=== PATIENT | female | born 1950 | race Caucasian/White ===

== ENCOUNTER 2017-03-11 07:02 | Outpatient (CLI) | payer MEDICARE, OTHER | END 2017-03-11 07:03 | disposition home or self-care (01) | LOC: BICMRI 07:02 | PROVIDERS: ATTEND Physical Medicine & Rehabilitation | DX: M54.6 Pain in thoracic spine (principal); M47.814 Spondylosis without myelopathy or radiculopathy, thoracic region; G95.0 Syringomyelia and syringobulbia; N28.1 Cyst of kidney, acquired | CPT/HCPCS: 72146 ==

== ENCOUNTER 2017-03-23 17:08 | Emergency (ER) | payer MEDICARE, OTHER ==
--- NOTE | 2017-03-23 18:01 | CT ---
CT OF BRAIN PERFORMED WITHOUT CONTRAST ENHANCEMENT: 03/23/17 HISTORY: Hypertension and headache. COMPARISON: 05/27/16 study. Some mild ventricular and sulcal prominence. There is no signs of intracerebral hemorrhage or extra-a xial fluid collections. The mastoid air cells and visualized sinuses are clear. IMPRESSION: No acute intracranial abnormalities. POS: [facility]
[2017-03-23] MEDS ORDERED: Metoclopramide HCl 10 MG/2 ML VIAL ONE (18:24)
[2017-03-23] MEDS ORDERED: diphenhydrAMINE 50 MG/ML VIAL ONE (18:24)
[2017-03-23 18:48] LABS: #Basophils 0.1 thou/uL (0.0-0.2); #Lymphocytes 1.5 thou/uL (1.20-3.40); #Monocytes 1.1 thou/uL (0.11-0.59); #Neutrophils 14.1 thou/uL (1.40-6.50); %Basophils 0.6 % (0.0-1.0); %Lymphocytes 8.9 % (21.0-51.0); %Monocytes 6.6 % (0.0-10.0); Hematocrit 41.9 % (36.0-47.0); Mean Platelet Volume 6.9 fL (7.4-10.4); Red Blood Cell (RBC) Count 4.73 mill/uL (4.20-5.40); White Blood Cell (WBC) Count 16.8 thou/uL (4.8-10.8)
[2017-03-23] MEDS ORDERED: Labetalol HCl 100 MG/20 ML VIAL ONE (18:48)
[2017-03-23 18:54] LABS: Prothrombin Time 13.2 SEC (12.0-14.7)
[2017-03-23 19:04] LABS: ALT (SGPT) 20 U/L (8-55); AST (SGOT) 19 U/L (5-34); Alkaline Phosphatase 86 U/L (40-150); Anion Gap 17 mmol/L (10-20); BUN (Urea Nitrogen) 12 mg/dL (9.8-20.1); Bilirubin, Total 0.4 mg/dL (0.2-1.2); Calc. Creatinine Clearance 0 mL/min (70-130); Calcium 10.1 mg/dL (7.8-10.44); Carbon Dioxide 25 mmol/L (23-31); Chloride 107 mmol/L (98-107); Estimated GFR-MDRD 70; Globulin 3.5 g/dL (2.4-3.5); Magnesium 2.5 mg/dL (1.6-2.6); Protein, Total 8.2 g/dL (6.0-8.3)
[2017-03-23 19:05] LABS: Troponin I Less than 0.010 ng/mL (< 0.028)
[2017-03-23] MEDS ORDERED: Ketorolac Tromethamine 30 MG/ML VIAL ONE (19:58)
[2017-03-23] MEDS ORDERED: Fentanyl 100 MCG/2 ML VIAL ONE (20:31)
== END 2017-03-23 21:13 | disposition home or self-care (01) ==
LOC: SCSER 17:08
DX: I10 Essential (primary) hypertension (principal); J06.9 Acute upper respiratory infection, unspecified; K21.9 Gastro-esophageal reflux disease without esophagitis
CPT/HCPCS: 70450; 80053; 82553; 83735; 84484; 85025; 85610; 93005; 96365; 96375; J1200; J1885; J2765; J3010

== ENCOUNTER 2017-04-01 16:01 | Outpatient (CLI) | payer MEDICARE, OTHER ==
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
== END 2017-04-01 16:02 | disposition home or self-care (01) ==
LOC: SCSMRI 16:01
PROVIDERS: ATTEND Family Medicine
DX: R51 Headache (principal); I67.82 Cerebral ischemia
CPT/HCPCS: 70551

== ENCOUNTER 2017-05-06 13:25 | Outpatient (CLI) | payer MEDICARE, OTHER | END 2017-05-06 13:26 | disposition home or self-care (01) | LOC: BICRAD 13:25 | PROVIDERS: ATTEND Family Medicine | DX: L03.317 Cellulitis of buttock (principal); M16.12 Unilateral primary osteoarthritis, left hip; Z98.1 Arthrodesis status | CPT/HCPCS: 72202 ==

== ENCOUNTER 2018-01-06 09:00 | Outpatient (CLI) | payer MEDICARE, OTHER ==
[~2018-01-06 09:00] MED LIST: Iopamidol 370 76% 100 ML VIAL ONE
--- NOTE | 2018-01-06 18:09 | CT ---
CT OF CHEST PERFORMED WITH CONTRAST CT OF ABDOMEN AND PELVIS PERFORMED WITH CONTRAST 01/06/18 HISTORY: Patient has lower abdominal pain and a ripping feeling in her chest with history of multiple previous surgeries including cholecystectomy and appendectomy and some type of stomach surgery. COMPARISON: 05/27/16 exam. The lungs are clear of any infiltrative process. No pleural effusions or pulmonary nodules identified . There are no rib fractures seen. The thyroid gland is enlarged. There are multiple bilateral thyroid nodules. The thoracic aorta is no rmal in caliber. There is no mediastinal, hilar or axillary adenopathy. CT OF ABDOMEN PERFORMED WITH CONTRAST ENHANCEMENT: Small hiatal hernia is noted. There is slight elevation to the right hemidiaphragm. The liver, spleen and pancreas regions appear unremarkable. The gallbladder appears to have been removed. Right and left adrenal glands are normal in appearance. A right renal cyst appears stable as compared to the prior exam. No obstruction. No significant periaortic or mesenteric adenopathy. No signs for obstruction. CT OF PELVIS PERFORMED WITH CONTRAST ENHANCEMENT: Bilateral I-bar placement across the SI joints are noted. No adenopathy, mass or free fluid. IMPRESSION: No acute abnormalities to the chest, abdomen or pelvis. Incidental findings as noted above. POS: [facility]
== END 2018-01-06 09:01 | disposition home or self-care (01) ==
LOC: SCSCT 09:00
PROVIDERS: ATTEND Family Medicine
DX: R10.32 Left lower quadrant pain (principal)
CPT/HCPCS: 71260; 74177

== ENCOUNTER 2018-04-07 11:39 | Emergency (ER) | payer MEDICARE, OTHER ==
[~2018-04-07 11:39] MED LIST changes: +ISOVUE-370 76%-LOCM 1 ML ONE; -Iopamidol 370 76% 100 ML VIAL ONE
[2018-04-07] MEDS ORDERED: Ondansetron PF 4 MG/2 ML Vial ONE (12:12)
[2018-04-07] MEDS ORDERED: Ketorolac Tromethamine 30 MG/ML VIAL ONE (12:12)
[2018-04-07 12:21] LABS: #Basophils 0.1 thou/uL (0.0-0.2); #Eosinphils 0.2 thou/uL (0.0-0.7); #Lymphocytes 1.7 thou/uL (1.20-3.40); #Monocytes 0.5 thou/uL (0.11-0.59); #Neutrophils 4.6 thou/uL (1.40-6.50); %Basophils 1.1 % (0.0-1.0); %Eosinophils 2.2 % (0.0-10.0); %Lymphocytes 24.7 % (21.0-51.0); %Monocytes 6.5 % (0.0-10.0); %Neutrophils 65.5 % (42.0-75.0); Hemoglobin 13.8 g/dL (12.0-16.0); Mean Corpuscular HGB CONC 34.2 g/dL (32.0-36.0); Mean Corpuscular Hemoglobin 30.3 pg (27.0-31.0); Mean Corpuscular Volume 88.6 fL (78.0-98.0); Mean Platelet Volume 6.9 fL (7.4-10.4); Platelet Count 274 thou/uL (130-400); RBC Distribution Width 12.3 % (11.5-14.5); Red Blood Cell (RBC) Count 4.56 mill/uL (4.20-5.40)
[2018-04-07 12:39] LABS: Bilirubin Negative (Negative); Blood, Urine Negative (Negative); Clarity CLEAR (Clear); Glucose, Urine (Dipstick) Negative (Negative); Leukocyte Small (Negative); Nitrite Negative (Negative); Protein, Urine (Dipstick) Negative (Neg-Trace); Urobilinogen 0.2 mg/dL (0.2-1.0); pH, Urine 6.5 (5.0-9.0)
[2018-04-07 12:41] LABS: Bacteria/HPF None Seen HPF (None Seen); Hyaline Casts/LPF 0-3 HYALINE CAST LPF (0-3 Hyaline); RBC/HPF 0-3 HPF (0-3); Squamous Epithelial 0-3 HPF (0-3); WBC/HPF 0-3 HPF (0-3)
[2018-04-07 12:45] LABS: ALT (SGPT) 12 U/L (8-55); AST (SGOT) 15 U/L (5-34); Albumin 4.1 g/dL (3.4-4.8); Alkaline Phosphatase 79 U/L (40-150); Anion Gap 14 mmol/L (10-20); BUN (Urea Nitrogen) 8 mg/dL (9.8-20.1); Bilirubin, Total 0.6 mg/dL (0.2-1.2); Calc. Creatinine Clearance 0 mL/min (70-130); Calcium 9.6 mg/dL (7.8-10.44); Carbon Dioxide 24 mmol/L (23-31); Chloride 105 mmol/L (98-107); Estimated GFR-MDRD 60; Globulin 3.1 g/dL (2.4-3.5); Glucose 102 mg/dL (80-115); Lipase 28 U/L (8-78); Protein, Total 7.2 g/dL (6.0-8.3); Sodium 139 mmol/L (136-145)
--- NOTE | 2018-04-07 14:32 | CT ---
CT OF THE ABDOMEN AND PELVIS WITH IV CONTRAST: Date: 04-07-18 Provided Clinical History: Left lower quadrant/flank pain. Comparison: 04-07-18 FINDINGS: The visualized lung bases are free of significant opacity. There is a stable simple cyst involving the right kidney. The solid abdominal organs demonstrate an o therwise unremarkable CT appearance. There is no bowel dilatation, inflammatory fat stranding, free fluid or lymph node enlargement appare nt. No evidence for urinary tract calculi or hydronephrosis. Scattered vascular calcifications are seen. Bilateral sacroiliac joint arthrodesis changes are noted. The osseous structures demonstrate no concerning lytic or blastic lesions. IMPRESSION: No evidence for acute process. POS: [facility]
== END 2018-04-07 14:38 | disposition home or self-care (01) ==
LOC: ERS 11:39
DX: R10.32 Left lower quadrant pain (principal); E78.5 Hyperlipidemia, unspecified; K21.9 Gastro-esophageal reflux disease without esophagitis; I10 Essential (primary) hypertension; Z79.899 Other long term (current) drug therapy
CPT/HCPCS: 36415; 74177; 80053; 81003; 81015; 83690; 85025; 96361; 96374; 96375; J1885; J2405

== ENCOUNTER 2018-07-09 08:59 | Emergency (ER) | payer MEDICARE, OTHER ==
[2018-07-09] MEDS ORDERED: Ketorolac Tromethamine 60 MG/2 ML VIAL ONE (09:29)
[2018-07-09] MEDS ORDERED: Ondansetron ODT 8 MG TAB ONE (09:29)
[2018-07-09 09:43] LABS: Bilirubin Small (Negative); Blood, Urine Trace (Negative); Clarity Cloudy (Clear); Glucose, Urine (Dipstick) Negative (Negative); Leukocyte Moderate (Negative); Nitrite Negative (Negative); Protein, Urine (Dipstick) 30 mg/dL (Neg-Trace); Urobilinogen 0.2 mg/dL (0.2-1.0)
[2018-07-09 09:44] LABS: Bacteria/HPF 3+ HPF (None Seen); Squamous Epithelial 0-3 HPF (0-3); WBC/HPF 21-50 HPF (0-3)
[2018-07-09 10:05] LABS: #Basophils 0.1 thou/uL (0.0-0.2); #Eosinphils 0.1 thou/uL (0.0-0.7); #Lymphocytes 1.2 thou/uL (1.20-3.40); #Monocytes 0.4 thou/uL (0.11-0.59); #Neutrophils 4.2 thou/uL (1.40-6.50); %Basophils 1.6 % (0.0-1.0); %Eosinophils 1.1 % (0.0-10.0); %Lymphocytes 20.6 % (21.0-51.0); %Monocytes 6.6 % (0.0-10.0); %Neutrophils 70.1 % (42.0-75.0); Hemoglobin 13.5 g/dL (12.0-16.0); Mean Corpuscular Hemoglobin 29.5 pg (27.0-31.0); Mean Corpuscular Volume 89.5 fL (78.0-98.0); Mean Platelet Volume 6.3 fL (7.4-10.4); Platelet Count 237 thou/uL (130-400); RBC Distribution Width 12.1 % (11.5-14.5); Red Blood Cell (RBC) Count 4.58 mill/uL (4.20-5.40)
[2018-07-09 10:16] LABS: ALT (SGPT) 14 U/L (8-55); AST (SGOT) 14 U/L (5-34); Albumin 4.1 g/dL (3.4-4.8); Alkaline Phosphatase 71 U/L (40-150); Anion Gap 14 mmol/L (10-20); BUN (Urea Nitrogen) 8 mg/dL (9.8-20.1); Bilirubin, Total 0.6 mg/dL (0.2-1.2); Calc. Creatinine Clearance 0 mL/min (70-130); Calcium 9.4 mg/dL (7.8-10.44); Carbon Dioxide 24 mmol/L (23-31); Chloride 109 mmol/L (98-107); Estimated GFR-MDRD 71; Globulin 2.7 g/dL (2.4-3.5); Glucose 113 mg/dL (80-115); Potassium 3.6 mmol/L (3.5-5.1); Protein, Total 6.8 g/dL (6.0-8.3); Sodium 143 mmol/L (136-145)
== END 2018-07-09 10:20 | disposition home or self-care (01) ==
LOC: SCSER 08:59
DX: N39.0 Urinary tract infection, site not specified (principal); E78.5 Hyperlipidemia, unspecified; K21.9 Gastro-esophageal reflux disease without esophagitis; I10 Essential (primary) hypertension; Z79.899 Other long term (current) drug therapy
CPT/HCPCS: 36415; 80053; 81003; 81015; 85025; 87077; 87086; 87186; 96372; J1885

== ENCOUNTER 2018-07-17 13:18 | Emergency (ER) | payer MEDICARE ==
--- NOTE | 2018-07-17 14:23 | RAD ---
CHEST 1 VIEW: Date: 07/17/18 Time: 1411 hours HISTORY: Abdominal pain. UTI. FINDINGS: Comparison made with exam of 03/13/14. The heart size is normal. The lungs are expanded without focal areas of consolidation, pneumothoraces , or pleural effusions. IMPRESSION: No radiographic evidence of acute cardiopulmonary process. POS: [facility]
[2018-07-17 14:46] LABS: #Basophils 0.1 thou/uL (0.0-0.2); #Eosinphils 0.1 thou/uL (0.0-0.7); #Lymphocytes 1.7 thou/uL (1.20-3.40); #Monocytes 0.5 thou/uL (0.11-0.59); %Basophils 0.8 % (0.0-1.0); %Eosinophils 0.9 % (0.0-10.0); %Lymphocytes 23.3 % (21.0-51.0); %Monocytes 6.8 % (0.0-10.0); %Neutrophils 68.2 % (42.0-75.0); Hemoglobin 13.9 g/dL (12.0-16.0); Mean Corpuscular HGB CONC 33.5 g/dL (32.0-36.0); Mean Corpuscular Hemoglobin 30.3 pg (27.0-31.0); Mean Corpuscular Volume 90.4 fL (78.0-98.0); Platelet Count 296 thou/uL (130-400); RBC Distribution Width 11.9 % (11.5-14.5); Red Blood Cell (RBC) Count 4.59 mill/uL (4.20-5.40); White Blood Cell (WBC) Count 7.3 thou/uL (4.8-10.8)
[2018-07-17] MEDS ORDERED: ISOVUE-370 76%-LOCM 1 ML ONE (15:03)
[2018-07-17 15:05] LABS: ALT (SGPT) 28 U/L (8-55); AST (SGOT) 31 U/L (5-34); Albumin 4.1 g/dL (3.4-4.8); Alkaline Phosphatase 69 U/L (40-150); Anion Gap 15 mmol/L (10-20); BUN (Urea Nitrogen) 11 mg/dL (9.8-20.1); Bilirubin, Total 0.6 mg/dL (0.2-1.2); CK (CPK) 25 U/L (29-168); Calc. Creatinine Clearance 0 mL/min (70-130); Calcium 9.5 mg/dL (7.8-10.44); Carbon Dioxide 22 mmol/L (23-31); Chloride 106 mmol/L (98-107); Estimated GFR-MDRD 57; Globulin 2.5 g/dL (2.4-3.5); Glucose 116 mg/dL (80-115); Lipase 38 U/L (8-78); Potassium 3.7 mmol/L (3.5-5.1); Protein, Total 6.6 g/dL (6.0-8.3); Sodium 139 mmol/L (136-145)
[2018-07-17 15:37] LABS: Bilirubin Small (Negative); Blood, Urine Negative (Negative); Clarity CLOUDY (Clear); Glucose, Urine (Dipstick) Negative (Negative); Leukocyte Large (Negative); Nitrite Positive (Negative); Protein, Urine (Dipstick) 100 mg/dL (Neg-Trace); Specific Gravity, Urine 1.024 (1.002-1.036); Urobilinogen 0.2 mg/dL (0.2-1.0)
[2018-07-17] MEDS ORDERED: Ondansetron ODT 4 MG TAB ONE (15:38)
[2018-07-17 15:50] LABS: Pathc Cast-AUWi Flag 8.97 (0-2.49); Yeast-AUWi Flag 37.1 (0-25.0)
[2018-07-17 16:00] LABS: Bacteria/HPF Rare-Few HPF (None Seen); Hyaline Casts/LPF 4-6 HYALINE CAST LPF (0-3 Hyaline); Renal Epithelial 0-3 HPF (0-3)
[2018-07-17 16:01] LABS: Yeast-All Forms None Seen HPF (None Seen)
--- NOTE | 2018-07-17 17:37 | CT ---
CT of abdomen and pelvis: 07/17/2018 COMPARISON: 04/07/2018 HISTORY: Intermittent abdominal pain TECHNIQUE: Axial CT imaging at 5 mm intervals through abdomen and pelvis with IV contrast. Coronal re formatted imaging obtained. FINDINGS: The lack of oral contrast limits assessment of the bowel. The imaged lung bases are unremar kable. No free intraperitoneal air or fluid seen. The gallbladder is nonvisualized. The liver, spleen, pancreas, and adrenal glands appear unremarkable . Neither kidney appears obstructed. Stable midpole right renal cyst measuring 2.6 cm. There is fusion hardware associated with bilateral sacroiliac joints. The uterus appears surgically absent. Limited assessment of the bowel appears grossly unremarkable. There is scattered arterial calcification of the abdominal aorta. No pelvic, retroperitoneal, or mesenteric lymphadenopathy. No acute osseous abnormality. Multilevel stable degenerative changes noted involving the imaged lower thoracic spine and the lumbar spine. IMPRESSION: Stable CT examination of the abdomen and pelvis. No acute findings.
== END 2018-07-17 18:18 | disposition home or self-care (01) ==
LOC: ERS 13:18
DX: N39.0 Urinary tract infection, site not specified (principal); E78.5 Hyperlipidemia, unspecified; K21.9 Gastro-esophageal reflux disease without esophagitis; I10 Essential (primary) hypertension
CPT/HCPCS: 36415; 71045; 74177; 80053; 81003; 81015; 82550; 83605; 83690; 84484; 85025; 87086; 93005; 94760; Q0162; Q9966

== ENCOUNTER 2019-05-23 10:07 | Outpatient (CLI) | payer MEDICARE, OTHER ==
--- NOTE | 2019-05-23 10:26 | RAD ---
TWO VIEWS OF THE CHEST: COMPARISON: 06/05/2014. HISTORY: Dyspnea. FINDINGS: Two views of the chest show normal sized cardiomediastinal silhouette. There is no evidence of consol idation, mass, or pleural effusion. Degenerative changes and postsurgical changes are seen in the spi ne. IMPRESSION: No evidence of acute cardiopulmonary disease. POS: [facility]
== END 2019-05-23 10:08 | disposition home or self-care (01) ==
LOC: RAD 10:07
PROVIDERS: ATTEND Internal Medicine
DX: R06.00 Dyspnea, unspecified (principal)
CPT/HCPCS: 71046

== ENCOUNTER 2020-01-31 17:16 | Inpatient (IN) | payer MEDICARE ==
[~2020-01-31 17:16] MED LIST changes: -ISOVUE-370 76%-LOCM 1 ML ONE; +Iopamidol-370 76% 500 ML 1 ML ONE
[2020-01-31] MEDS ORDERED: Acetaminophen 500 MG TAB ONE (17:30)
[2020-01-31 18:06] LABS: #Lymphocytes 1.5 thou/uL (1.20-3.40); #Monocytes 0.7 thou/uL (0.11-0.59); #Neutrophils 4.5 thou/uL (1.40-6.50); %Basophils 0.6 % (0.0-1.0); %Eosinophils 0.2 % (0.0-10.0); %Monocytes 10.3 % (0.0-10.0); %Neutrophils 66.9 % (42.0-75.0); Hemoglobin 13.3 g/dL (12.0-16.0); Mean Corpuscular HGB CONC 36.6 g/dL (32.0-36.0); Mean Corpuscular Hemoglobin 31.5 pg (27.0-31.0); Mean Platelet Volume 7.1 fL (7.4-10.4); Platelet Count 205 thou/uL (130-400); RBC Distribution Width 11.8 % (11.5-14.5); Red Blood Cell (RBC) Count 4.21 mill/uL (4.20-5.40); White Blood Cell (WBC) Count 6.7 thou/uL (4.8-10.8)
[2020-01-31 18:38] LABS: ALT (SGPT) 18 U/L (8-55); AST (SGOT) 24 U/L (5-34); Albumin 3.5 g/dL (3.4-4.8); Alkaline Phosphatase 66 U/L (40-110); Anion Gap 15 mmol/L (10-20); BUN (Urea Nitrogen) 14 mg/dL (9.8-20.1); Bilirubin, Total 0.5 mg/dL (0.2-1.2); Calc. Creatinine Clearance 0 mL/min (70-130); Calcium 8.7 mg/dL (7.8-10.44); Carbon Dioxide 23 mmol/L (23-31); Chloride 98 mmol/L (98-107); Estimated GFR-MDRD 71; Globulin 3.3 g/dL (2.4-3.5); Glucose 114 mg/dL (83-110); Magnesium 1.9 mg/dL (1.6-2.6); Potassium 3.1 mmol/L (3.5-5.1); Protein, Total 6.8 g/dL (6.0-8.3); Sodium 133 mmol/L (136-145)
[2020-01-31] MEDS ORDERED: Budesonide 0.5 MG/2 ML NEB ONE (18:42)
[2020-01-31] MEDS ORDERED: Dexamethasone 10 MG/ML VIAL ONE (18:42)
[2020-01-31] MEDS ORDERED: Albuterol 200 PUFF (6.7GM INHALER) ONE (18:44)
--- NOTE | 2020-01-31 18:52 | RAD ---
FRONTAL RADIOGRAPH CHEST: 01/31/20 Portable upright. COMPARISON: 05/23/19 HISTORY: Positive COVID test, chills and weakness. FINDINGS: Mild hazy opacity noted lateral to the left hilum which may signify vascular prominence, volume loss or mild infiltrates associated with COVID pneumonia. No pneumothorax, pleural fluid or lobar consolid ation. IMPRESSION: Mild hazy increased density lateral to the left hilum may signify infiltrate associated with COVID pn eumonia. CT examination could better evaluate the lung parenchyma. POS: [facility]
[2020-01-31 19:17] LABS: Bilirubin Negative (Negative); Blood, Urine Trace (Negative); Glucose, Urine (Dipstick) Negative (Negative); Ketone, Urine Trace mg/dL (Negative); Leukocyte Large (Negative); Nitrite Negative (Negative); Protein, Urine (Dipstick) Trace mg/dL (Neg-Trace); Specific Gravity, Urine 1.015 (1.005-1.030)
[2020-01-31 19:18] LABS: Clarity Hazy (Clear)
[2020-01-31 19:25] LABS: Bacteria/HPF 4+ HPF (None Seen); Squamous Epithelial 0-3 HPF (0-3); WBC/HPF Greater Than 50 HPF (0-3)
[2020-01-31] MEDS ORDERED: cefTRIAXone\\ROCEPHIN 1 GM VIAL ONE (19:31)
--- NOTE | 2020-01-31 19:37 | CT ---
CT ANGIOGRAM THORAX WITH IV CONTRAST AND 3-D RECONSTRUCTIONS CLINICAL INDICATION: 1 week history of worsening weakness and general malaise. Covid positive. Hypoxia. Exertional dyspnea . COMPARISON: 02/25/2019 FINDINGS: Pulmonary arteries: No filling defects are seen in the pulmonary arteries to suggest a pulmonary embo mary. Aorta: Scattered vascular calcifications in minimal atherosclerotic plaque. Lungs: There are scattered mild groundglass densities seen throughout the lungs bilaterally in a paco pheral predominance suggesting viral pneumonitis such as Covid 19. A trace right pleural effusion is visualized. No discrete pulmonary nodule or mass is identified. Large airways appear patent withou t filling defect visualized. Mediastinum: No enlarged lymph nodes are seen by CT size criteria. Mild increase in small lymph nodes is present which may be related to mild reactive lymphadenopathy. Thyroid gland: The thyroid gland is enlarged and heterogeneous with suggestion of bilateral thyroid n odules. This finding was also present on CTA chest on 02/25/2019. Cystic lesions and heterogeneous nodules were seen on CT examination in 2018. Osseous structures: Postoperative changes with metallic intradiscal spacer lower cervical spine is no fidencio. Mild degenerative changes are seen in the thoracic spine. Chest wall: No abnormality visualized. Upper abdomen: Hypodense lesion right kidney seen on prior study in 2018 compatible with a cyst. Smal l hiatal hernia is present. Remainder the upper abdomen has a normal CT appearance. IMPRESSION: 1. Covid pneumonia with scattered groundglass densities throughout the lungs. 2. No CT evidence of a pulmonary embolus. 3. Enlarged thyroid gland with multiple thyroid nodules present which were seen on prior studies in 2 and 2018.
[2020-01-31] MEDS ORDERED: Azithromycin 500 MG VIAL ONE (20:21)
[2020-01-31 23:23] VITALS: BMI 33.3
[2020-02-01] MEDS ORDERED: Ondansetron PF 4 MG/2 ML Vial IVP PRN (00:12)
[2020-02-01] MEDS ORDERED: Potassium Chloride 20 MEQ TAB PO SCH (00:15)
[2020-02-01] MEDS ORDERED: Montelukast Sodium 10 mg Tablet PO SCH (00:30)
[2020-02-01] MEDS ORDERED: Atorvastatin Calcium 20 MG TAB PO SCH (00:30)
[2020-02-01] MEDS ORDERED: traZODone HCl 150 MG TAB PO SCH (00:30)
[2020-02-01] MEDS ORDERED: rOPINIRole HCl 1 MG TAB PO SCH (00:30)
[2020-02-01] MEDS: Baclofen 10 MG TAB PO SCH ×4 (00:37→17:30)
--- NOTE | 2020-02-01 01:37 | HP ---
REASON FOR ADMISSION: Fatigue and decreased oral intake. HISTORY OF PRESENT ILLNESS: This is a 69-year-old female patient who was recently diagnosed with COVID-19. She has been tired and in bed most of the time for the past week. She was exposed to the flu. She went to the clinic yesterday to test for the flu and was tested as well for COVID-19. She tested positive. She denies being short of breath. She complains mainly of severe fatigue and generalized muscle aches. She does have chronic abdominal pain and chronic back pain. PAST MEDICAL HISTORY: 1. High blood pressure. 2. Obesity. 3. High cholesterol. 4. Multiple back surgeries. 5. Abdominal surgeries. 6. Hysterectomy. 7. Cholecystectomy. 8. Appendectomy. 9. Chronic abdominal pain. SOCIAL HISTORY: She does not smoke. Does not drink alcohol. FAMILY HISTORY: Negative for premature coronary artery disease. REVIEW OF SYSTEMS: All systems reviewed and except the above mentioned, found to be negative. PHYSICAL EXAMINATION: GENERAL: Awake, alert, oriented, does not appear in distress. VITAL SIGNS: Her blood pressure is 124/62, her heart rate is 63, temperature is 97.7, saturating 96% on 2.5 L nasal cannula. HEENT: Head is nontraumatic, normocephalic. Pupils equal, reactive. Extraocular movements are intact. Nonicteric sclerae. Well-injected conjunctivae. Oral mucosa normal. Nasal mucosa normal. NECK: Supple. No adenopathy. No murmur. Thyroid is not palpable. Trachea is midline. No supraclavicular adenopathy. HEENT: S1, S2 regular. No murmurs. No gallops. No friction rubs. No displacement of PMI. LUNGS: No wheezes, no rhonchi, no crackles. ABDOMEN: Bowel sounds are positive. Nontender abdomen. No hepatosplenomegaly. EXTREMITIES: No lower extremity edema. No cyanosis. NEUROLOGIC: Cranial nerves 2 through 12 within normal limits. Normal motor function. Normal sensory function. Normal reflexes. LABORATORY DATA: Blood work shows WBC of 6.7, hemoglobin is 13.3, platelets of 205. D-dimer 0.76. Sodium 133, potassium 3.1, bicarb 23, creatinine 0.8. Urinalysis shows large leukocyte esterase, greater than [address] of the chest shows COVID pneumonia with scattered ground-glass densities throughout the lungs. No CT evidence of pulmonary embolus. Enlarged thyroid gland with multiple thyroid nodules present, which were seen on prior studies in 2019 and 2018. ASSESSMENT AND PLAN: This is a 69-year-old female patient, presenting with persistent fatigue. She was recently diagnosed with COVID-19. In the emergency room, she tried to ambulate, but was very fatigued, otherwise denies being short of breath. Cardiac: The patient will be maintained on her aspirin and Coreg. Renal system and electrolytes: The patient does have low potassium replaced. We will recheck in the morning. For COVID pneumonia, she did receive IV antibiotics in the ER. We will maintain her on the Decadron. She will be on Rocephin mainly for her urinary tract infection. For DVT prophylaxis, Lovenox subcutaneously. For her urinary tract infection, we will start her on Rocephin, awaiting urine culture results. Job ID: [id number]
[2020-02-01 07:16] LABS: Mean Corpuscular HGB CONC 34.4 g/dL (32.0-36.0); Mean Corpuscular Hemoglobin 30.5 pg (27.0-31.0); Mean Corpuscular Volume 88.7 fL (78.0-98.0); Mean Platelet Volume 6.8 fL (7.4-10.4); Platelet Count 210 thou/uL (130-400); RBC Distribution Width 11.8 % (11.5-14.5); Red Blood Cell (RBC) Count 4.26 mill/uL (4.20-5.40); White Blood Cell (WBC) Count 3.4 thou/uL (4.8-10.8)
[2020-02-01 07:23] LABS: Anion Gap 13 mmol/L (10-20); BUN (Urea Nitrogen) 18 mg/dL (9.8-20.1); Calc. Creatinine Clearance 89 mL/min (70-130); Calcium 8.9 mg/dL (7.8-10.44); Carbon Dioxide 26 mmol/L (23-31); Chloride 102 mmol/L (98-107); Estimated GFR-MDRD 61; Glucose 208 mg/dL (83-110); Potassium 3.8 mmol/L (3.5-5.1); Sodium 137 mmol/L (136-145)
[2020-02-01] MEDS: Aspirin 81 mg Enteric Coated Tablet PO SCH (08:30)
[2020-02-01] MEDS: Enoxaparin Sodium 40 MG/0.4 ML SYRINGE SC SCH (08:30)
[2020-02-01] MEDS: Hydrochlorothiazide 25 MG TAB PO SCH (08:30)
[2020-02-01] MEDS: Carvedilol 25 MG TAB PO SCH ×2 (08:35→17:30)
[2020-02-01] MEDS: Dexamethasone 4 mg/ml Vial SLOW IVP SCH (08:37)
[2020-02-01 08:51] LABS: #Lymphocytes 0.8 thou/uL (1.20-3.40); #Monocytes 0.3 thou/uL (0.11-0.59); #Neutrophils 2.3 thou/uL (1.40-6.50); %Eosinophils 0.4 % (0.0-10.0); %Lymphocytes 23.3 % (21.0-51.0); %Monocytes 8.1 % (0.0-10.0); %Neutrophils 68.2 % (42.0-75.0); Lymphocytes 28 % (21-51); MDiff Complete? YES; Monocytes 2 % (0-10); Neutrophil 70 % (42-75); Platelet Morphology Comment Appears Adequate; RBC Morphology Normal
[2020-02-01] MEDS: cefTRIAXone\\ROCEPHIN 1 GM in Sodium Chloride 0.9% 100 ML IVPB SCH (19:52)
[2020-02-01] MEDS: Montelukast Sodium 10 mg Tablet PO SCH (19:54)
[2020-02-01] MEDS: Atorvastatin Calcium 20 MG TAB PO SCH (19:54)
[2020-02-01] MEDS: rOPINIRole HCl 1 MG TAB PO SCH (19:55)
[2020-02-01] MEDS: traZODone HCl 150 MG TAB PO SCH (19:56)
[2020-02-01] MEDS ORDERED: Polyethylene Glycol 3350 17 GM Packet PO PRN (23:14)
[2020-02-02] MEDS: Baclofen 10 MG TAB PO SCH ×5 (00:06→23:11)
[2020-02-02] MEDS: Dexamethasone 4 mg/ml Vial SLOW IVP SCH (08:27)
[2020-02-02] MEDS: Hydrochlorothiazide 25 MG TAB PO SCH (08:27)
[2020-02-02] MEDS: Aspirin 81 mg Enteric Coated Tablet PO SCH (08:28)
[2020-02-02] MEDS: Polyethylene Glycol 3350 17 GM Packet PO SCH (08:28)
[2020-02-02] MEDS: Carvedilol 25 MG TAB PO SCH ×2 (08:28→17:25)
[2020-02-02] MEDS: Enoxaparin Sodium 40 MG/0.4 ML SYRINGE SC SCH ×2 (08:28→20:42)
[2020-02-02] MEDS: Multivit, Therapeutic 1 TAB PO SCH (11:05)
[2020-02-02] MEDS: Ascorbic Acid 500 mg Chewable Tablet PO SCH (11:05)
[2020-02-02] MEDS ORDERED: Melatonin 3 MG TAB PO PRN (12:37)
[2020-02-02] MEDS: PROVENTIL INHALER 6.7 G (200 INHALATIONS) INH SCH ×3 (16:26→23:11)
--- NOTE | 2020-02-02 18:50 | PDOC.HOSPP ---
- Subjective Encounter Date: 02/02/20 Encounter Time: 11:00 Subjective: Feels generally weak and fatigue. Short of breath on [id number] exertion. Some dry cough. - Objective Vital Signs & Weight: Vital Signs (12 hours) Temp Pulse Resp BP Pulse Ox 02/02/20 17:39 58 L 18 96 02/02/20 16:00 98.7 F 51 L 18 154/77 H 96 02/02/20 12:00 97.4 F L 54 L 18 121/92 H 94 L 02/02/20 08:30 97.8 F 56 L 18 134/87 94 L 02/02/20 08:00 94 L Weight Weight 218 lb 14.704 oz I&O: 02/01/20 02/02/20 02/03/20 06:59 06:59 06:59 Intake Total 1800 1680 Balance 1800 1680 Result Diagrams: 02/03/20 05:14 02/03/20 05:14 Additional Labs: Abnormal Lab Results - Last 48 hrs 02/01/20 06:54: Lymphocytes # 0.8 L Radiology Reviewed by me: Yes (Chest x-raypneumonia) Hospitalist ROS - Review of Systems Gastrointestinal: denies: nausea, vomiting, abdominal pain, diarrhea, constipation, melena, hematochezia, other Genitourinary: denies: dysuria, frequency, incontinence, hematuria, retention, other - Medication Medications: Active Medications Generic Name Dose Route Start Last Admin Trade Name Freq PRN Reason Stop Dose Admin Albuterol Sulfate 2 puff 02/02/20 14:30 02/02/20 17:39 Proventil Inhaler 6.7 G (200 Inhalations) INH 2 puff [id number] MARTÍN Administration Ascorbic Acid 1,000 mg 02/02/20 09:00 02/02/20 11:05 Ascorbic Acid 500 Mg Chewable Tablet PO 1,000 mg DAILY MARTÍN Administration Aspirin 81 mg 02/01/20 09:00 02/02/20 08:28 Aspirin 81 Mg Enteric Coated Tablet PO 81 mg DAILY MARTÍN Administration Atorvastatin Calcium 20 mg 02/01/20 21:00 02/01/20 19:54 Atorvastatin Calcium 20 Mg Tab PO 20 mg HS MARTÍN Administration Baclofen 5 mg 01/31/20 23:59 02/02/20 17:25 Baclofen 10 Mg Tab PO 5 mg Q6HR MARTÍN Administration Carvedilol 12.5 mg 02/01/20 08:00 02/02/20 17:25 Carvedilol 25 Mg Tab PO 12.5 mg BID-WM MARTÍN Administration Dexamethasone 6 mg 02/01/20 09:00 02/02/20 08:27 Dexamethasone 4 Mg/Ml Vial SLOW IVP 6 mg DAILY MARTÍN Administration Hydrochlorothiazide 12.5 mg 02/01/20 09:00 02/02/20 08:27 Hydrochlorothiazide 25 Mg Tab PO 12.5 mg DAILY MARTÍN Administration Ceftriaxone Sodium 1 gm/ 100 mls @ 200 mls/hr 02/01/20 20:00 02/01/20 19:52 Sodium Chloride IVPB 100 mls 2000 MARTÍN Administration Montelukast Sodium 10 mg 02/01/20 21:00 02/01/20 19:54 Montelukast Sodium 10 Mg Tablet PO 10 mg HS MARTÍN Administration Multivitamins 1 tab 02/02/20 09:00 02/02/20 11:05 Multivit, Therapeutic 1 Tab PO 1 tab DAILY MARTÍN Administration Ondansetron HCl 4 mg 02/01/20 00:12 02/01/20 00:37 Ondansetron Pf 4 Mg/2 Ml Vial IVP 4 mg Q6H PRN Administration Nausea/Vomiting Pantoprazole Sodium 40 mg 02/01/20 09:00 02/02/20 08:28 Pantoprazole 40 Mg Tab PO 40 mg BID MARTÍN Administration Polyethylene Glycol 17 gm 02/02/20 09:00 02/02/20 08:28 Polyethylene Glycol 3350 17 Gm Packet PO 17 gm DAILY MARTÍN Administration Ropinirole HCl 1 mg 02/01/20 21:00 02/01/20 19:55 Ropinirole Hcl 1 Mg Tab PO 1 mg QPM MARTÍN Administration Sodium Chloride 10 ml 02/02/20 09:00 02/02/20 11:06 Flush - Normal Saline 10 Ml Syringe IVF 10 ml Q12HR MARTÍN Administration Trazodone HCl 150 mg 02/01/20 21:00 02/01/20 19:56 Trazodone Hcl 150 Mg Tab PO 150 mg HS MARTÍN Administration - Exam General Appearance: ill appearing Neck: supple, no JVD Heart: RRR, no gallops, no rubs, normal peripheral pulses Respiratory: normal chest expansion, rales, rhonchi, tachypneic Gastrointestinal: soft, non-tender, non-distended, normal bowel sounds Extremities: no cyanosis, no clubbing, no edema Extremities - other findings: No calf tenderness Neurological: no new deficit Psychiatric: normal affect, A&O x 3 Hosp A/P - Plan DVT proph w/lovenox, DVT proph w/SCDs Acute hypoxic respiratory failure due to COVID-19 pneumoniasymptom onset January 22 UTIPOA Hypertension CKD stage II Hyperlipidemia Chronic low back pain Restless leg syndrome Anxiety Obesity with a BMI 33.3 Plan: Continue dexamethasone. Case discussed with infectious disease Dr. Fisher. Patient does not meet the criteria for remdesivir. Will increase Lovenox to 40 mg twice daily. Continue PPIs. Add vitamin C and zinc. Continue ceftriaxone for UTI. Continue other medications as above. Check inflammatory markers in a.m.
[2020-02-02] MEDS: cefTRIAXone\\ROCEPHIN 1 GM in Sodium Chloride 0.9% 100 ML IVPB SCH (20:41)
[2020-02-02] MEDS: Atorvastatin Calcium 20 MG TAB PO SCH (20:42)
[2020-02-02] MEDS: Montelukast Sodium 10 mg Tablet PO SCH (20:42)
[2020-02-02] MEDS: rOPINIRole HCl 1 MG TAB PO SCH (20:42)
[2020-02-02] MEDS: Zinc Sulfate 220 MG CAP PO SCH (20:42)
[2020-02-02] MEDS: traZODone HCl 150 MG TAB PO SCH (20:42)
[2020-02-03] MEDS: PROVENTIL INHALER 6.7 G (200 INHALATIONS) INH SCH ×6 (03:34→22:00)
[2020-02-03 05:28] LABS: #Lymphocytes 1.5 thou/uL (1.20-3.40); #Monocytes 0.6 thou/uL (0.11-0.59); #Neutrophils 6.5 thou/uL (1.40-6.50); %Eosinophils 0.2 % (0.0-10.0); %Lymphocytes 17.5 % (21.0-51.0); %Monocytes 6.6 % (0.0-10.0); %Neutrophils 75.7 % (42.0-75.0); Hemoglobin 12.5 g/dL (12.0-16.0); Mean Corpuscular HGB CONC 34.8 g/dL (32.0-36.0); Mean Corpuscular Hemoglobin 30.8 pg (27.0-31.0); Mean Corpuscular Volume 88.5 fL (78.0-98.0); Mean Platelet Volume 7.8 fL (7.4-10.4); Platelet Count 224 thou/uL (130-400); RBC Distribution Width 11.7 % (11.5-14.5); Red Blood Cell (RBC) Count 4.05 mill/uL (4.20-5.40); White Blood Cell (WBC) Count 8.6 thou/uL (4.8-10.8)
[2020-02-03] MEDS: Baclofen 10 MG TAB PO SCH ×3 (05:29→17:49)
[2020-02-03 05:48] LABS: ALT (SGPT) 16 U/L (8-55); AST (SGOT) 20 U/L (5-34); Albumin 3.3 g/dL (3.4-4.8); Alkaline Phosphatase 71 U/L (40-110); Anion Gap 11 mmol/L (10-20); BUN (Urea Nitrogen) 16 mg/dL (9.8-20.1); Bilirubin, Total 0.2 mg/dL (0.2-1.2); Calc. Creatinine Clearance 114 mL/min (70-130); Calcium 8.7 mg/dL (7.8-10.44); Carbon Dioxide 29 mmol/L (23-31); Chloride 103 mmol/L (98-107); Estimated GFR-MDRD 81; Globulin 3.1 g/dL (2.4-3.5); Glucose 117 mg/dL (83-110); Magnesium 1.9 mg/dL (1.6-2.6); Potassium 3.3 mmol/L (3.5-5.1); Protein, Total 6.4 g/dL (6.0-8.3); Sodium 140 mmol/L (136-145)
[2020-02-03] MEDS ORDERED: Potassium Chloride 20 MEQ TAB PO SCH ×2 (08:15→17:00)
[2020-02-03] MEDS: Multivit, Therapeutic 1 TAB PO SCH (08:15)
[2020-02-03] MEDS: Ascorbic Acid 500 mg Chewable Tablet PO SCH (08:17)
[2020-02-03] MEDS: Calcium Carbonate 600 MG + Vit D TAB PO SCH (08:17)
[2020-02-03] MEDS: Carvedilol 25 MG TAB PO SCH ×2 (08:18→17:49)
[2020-02-03] MEDS: Hydrochlorothiazide 25 MG TAB PO SCH (08:19)
[2020-02-03] MEDS: Dexamethasone 4 mg/ml Vial SLOW IVP SCH (08:19)
[2020-02-03] MEDS: Aspirin 81 mg Enteric Coated Tablet PO SCH (08:19)
[2020-02-03] MEDS: Enoxaparin Sodium 40 MG/0.4 ML SYRINGE SC SCH ×2 (08:20→20:15)
[2020-02-03] MEDS: Polyethylene Glycol 3350 17 GM Packet PO SCH (08:21)
[2020-02-03] MEDS ORDERED: Magnesium 2 GM/50 ML 2 GM in Premix Bag 1 BAG IVPB SCH (08:30)
[2020-02-03] MEDS: Cholecalciferol (Vitamin D3) 400 UNITS TAB PO SCH (10:44)
[2020-02-03] MEDS ORDERED: Artificial Tear Sol 15 ML BOT EA EYE PRN (16:41)
--- NOTE | 2020-02-03 18:31 | PDOC.HOSPP ---
- Subjective Encounter Date: 02/03/20 Encounter Time: 16:00 Subjective: Patient seen and examined for respiratory failure/COVID-19 pneumonia. No new complaints. No overnight events. Feels generally weak and fatigue. Short of breath on [id number] exertion. Minimal cough with some production. - Objective Vital Signs & Weight: Vital Signs (12 hours) Temp Pulse Resp BP Pulse Ox 02/03/20 17:51 63 14 96 02/03/20 16:00 97.8 F 63 14 127/59 L 96 02/03/20 14:30 63 14 96 02/03/20 12:40 96 02/03/20 12:28 96 02/03/20 12:00 97.5 F L 63 16 124/68 96 02/03/20 10:51 63 96 02/03/20 10:02 96 02/03/20 08:00 97.5 F L 52 L 16 144/79 H 96 Weight Weight 218 lb 14.704 oz I&O: 02/02/20 02/03/20 02/04/20 06:59 06:59 06:59 Intake Total 1800 3290 1690 Balance 1800 3290 1690 Result Diagrams: 02/03/20 05:14 02/03/20 05:14 Additional Labs: Abnormal Lab Results - Last 48 hrs 02/03/20 05:14: Potassium 3.3 L, C-Reactive Protein 1.20 H, Albumin 3.3 L, Albumin/Globulin Ratio 1.1 L 02/03/20 05:14: Ferritin 394.00 H 02/03/20 05:14: RBC 4.05 L, Hct 35.8 L, Neutrophils % 75.7 H, Lymphocytes % 17.5 L, Monocytes # 0.6 H 02/03/20 05:14: D-Dimer 0.55 H Microbiology - Entire Visit 02/02/20 00:30 Urine clean catch Urine Culture - Preliminary NO GROWTH AT 12 HOURS Radiology Reviewed by me: Yes (Chest x-raypneumonia) Hospitalist ROS - Review of Systems Cardiovascular: denies: chest pain, palpitations, orthopnea, paroxysmal noc. dyspnea, edema, light headedness, other Gastrointestinal: denies: nausea, vomiting, abdominal pain, diarrhea, constipa tion, melena, hematochezia, other - Medication Medications: Active Medications Generic Name Dose Route Start Last Admin Trade Name Freq PRN Reason Stop Dose Admin Albuterol Sulfate 2 puff 02/02/20 14:30 02/03/20 17:51 Proventil Inhaler 6.7 G (200 Inhalations) INH 2 puff [id number] MARTÍN Administration Ascorbic Acid 1,000 mg 02/02/20 09:00 02/03/20 08:17 Ascorbic Acid 500 Mg Chewable Tablet PO 1,000 mg DAILY MARTÍN Administration Aspirin 81 mg 02/01/20 09:00 02/03/20 08:19 Aspirin 81 Mg Enteric Coated Tablet PO 81 mg DAILY MARTÍN Administration Atorvastatin Calcium 20 mg 02/01/20 21:00 02/02/20 20:42 Atorvastatin Calcium 20 Mg Tab PO 20 mg HS MARTÍN Administration Baclofen 5 mg 01/31/20 23:59 02/03/20 17:49 Baclofen 10 Mg Tab PO 5 mg Q6HR MARTÍN Administration Calcium/Vitamin D 1 tab 02/03/20 08:00 02/03/20 08:17 Calcium Carbonate 600 Mg + Vit D Tab PO 1 tab QAM-WM MARTÍN Administration Carvedilol 12.5 mg 02/01/20 08:00 02/03/20 17:49 Carvedilol 25 Mg Tab PO 12.5 mg BID-WM MARTÍN Administration Cholecalciferol 400 units 02/03/20 09:00 02/03/20 10:44 Cholecalciferol (Vitamin D3) 400 Units Tab PO 400 units DAILY MARTÍN Administration Dexamethasone 6 mg 02/01/20 09:00 02/03/20 08:19 Dexamethasone 4 Mg/Ml Vial SLOW IVP 6 mg DAILY MARTÍN Administration Enoxaparin Sodium 40 mg 02/02/20 21:00 02/03/20 08:20 Enoxaparin Sodium 40 Mg/0.4 Ml Syringe SC 40 mg 0900,2100 MARTÍN Administration Hydrochlorothiazide 12.5 mg 02/01/20 09:00 02/03/20 08:19 Hydrochlorothiazide 25 Mg Tab PO 12.5 mg DAILY MARTÍN Administration Ceftriaxone Sodium 1 gm/ 100 mls @ 200 mls/hr 02/01/20 20:00 02/02/20 20:41 Sodium Chloride IVPB 100 mls 2000 MARTÍN Administration Montelukast Sodium 10 mg 02/01/20 21:00 02/02/20 20:42 Montelukast Sodium 10 Mg Tablet PO 10 mg HS MARTÍN Administration Multivitamins 1 tab 02/02/20 09:00 02/03/20 08:15 Multivit, Therapeutic 1 Tab PO 1 tab DAILY MARTÍN Administration Ondansetron HCl 4 mg 02/01/20 00:12 02/01/20 00:37 Ondansetron Pf 4 Mg/2 Ml Vial IVP 4 mg Q6H PRN Administration Nausea/Vomiting Pantoprazole Sodium 40 mg 02/01/20 09:00 02/03/20 08:19 Pantoprazole 40 Mg Tab PO 40 mg BID MARTÍN Administration Polyethylene Glycol 17 gm 02/02/20 09:00 02/03/20 08:21 Polyethylene Glycol 3350 17 Gm Packet PO 17 gm DAILY MARTÍN Administration Ropinirole HCl 1 mg 02/01/20 21:00 02/02/20 20:42 Ropinirole Hcl 1 Mg Tab PO 1 mg QPM MARTÍN Administration Sodium Chloride 10 ml 02/02/20 09:00 02/03/20 08:22 Flush - Normal Saline 10 Ml Syringe IVF 10 ml Q12HR MARTÍN Administration Trazodone HCl 150 mg 02/01/20 21:00 02/02/20 20:42 Trazodone Hcl 150 Mg Tab PO 150 mg HS MARTÍN Administration Zinc Sulfate 220 mg 02/02/20 21:00 02/02/20 20:42 Zinc Sulfate 220 Mg Cap PO 220 mg HS MARTÍN Administration - Exam General Appearance: ill appearing Heart: RRR, no gallops Respiratory: no wheezes, rales, rhonchi Gastrointestinal: soft, no guarding, no rigidity Extremities: no cyanosis, no clubbing Neurological: no new deficit Psychiatric: normal affect, A&O x 3 Hosp A/P - Plan DVT proph w/SCDs Acute hypoxic respiratory failure due to COVID-19 pneumoniasymptom onset January 22 UTI Hypertension CKD stage II Hyperlipidemia Chronic low back pain Restless leg syndrome Anxiety Obesity with a BMI 33.3 Plan: Continue O2 supplementation. Replace potassium and magnesium. Continue IV ceftriaxone for UTI. Continue bronchodilators. Continue dexamethasone. GI and DVT prophylaxis. Continue carvedilol, Lipitor and other medications as above. Recheck inflammatory markers every other day. Urine cultures negativeplease note that cultures were not sent on admission. A.m. labs
[2020-02-03] MEDS: cefTRIAXone\\ROCEPHIN 1 GM in Sodium Chloride 0.9% 100 ML IVPB SCH (20:14)
[2020-02-03] MEDS: Montelukast Sodium 10 mg Tablet PO SCH (20:15)
[2020-02-03] MEDS: traZODone HCl 150 MG TAB PO SCH (20:15)
[2020-02-03] MEDS: Atorvastatin Calcium 20 MG TAB PO SCH (20:15)
[2020-02-03] MEDS: Zinc Sulfate 220 MG CAP PO SCH (20:15)
[2020-02-03] MEDS: rOPINIRole HCl 1 MG TAB PO SCH (20:15)
[2020-02-03] MEDS: HYDROcodone/Chlorphen Polis 5 ML UDCUP PO PRN (20:56)
[2020-02-04] MEDS: Baclofen 10 MG TAB PO SCH ×4 (00:03→17:15)
[2020-02-04] MEDS: ALPRAZolam 0.25 MG TAB PO PRN (01:26)
[2020-02-04] MEDS: PROVENTIL INHALER 6.7 G (200 INHALATIONS) INH SCH ×6 (01:50→22:59)
[2020-02-04 06:19] LABS: #Lymphocytes 1.5 thou/uL (1.20-3.40); #Monocytes 0.7 thou/uL (0.11-0.59); #Neutrophils 5.2 thou/uL (1.40-6.50); %Basophils 0.1 % (0.0-1.0); %Eosinophils 0.4 % (0.0-10.0); %Monocytes 9.7 % (0.0-10.0); %Neutrophils 69.9 % (42.0-75.0); Hemoglobin 13.2 g/dL (12.0-16.0); Mean Corpuscular HGB CONC 34.6 g/dL (32.0-36.0); Mean Corpuscular Hemoglobin 30.6 pg (27.0-31.0); Mean Corpuscular Volume 88.5 fL (78.0-98.0); Mean Platelet Volume 7.1 fL (7.4-10.4); Platelet Count 212 thou/uL (130-400); RBC Distribution Width 11.6 % (11.5-14.5); Red Blood Cell (RBC) Count 4.31 mill/uL (4.20-5.40); White Blood Cell (WBC) Count 7.5 thou/uL (4.8-10.8)
[2020-02-04 06:42] LABS: ALT (SGPT) 34 U/L (8-55); AST (SGOT) 33 U/L (5-34); Albumin 3.4 g/dL (3.4-4.8); Alkaline Phosphatase 69 U/L (40-110); Anion Gap 12 mmol/L (10-20); BUN (Urea Nitrogen) 14 mg/dL (9.8-20.1); Bilirubin, Total 0.3 mg/dL (0.2-1.2); Calc. Creatinine Clearance 119 mL/min (70-130); Calcium 8.9 mg/dL (7.8-10.44); Carbon Dioxide 30 mmol/L (23-31); Chloride 102 mmol/L (98-107); Estimated GFR-MDRD 85; Globulin 3.2 g/dL (2.4-3.5); Glucose 115 mg/dL (83-110); Potassium 3.7 mmol/L (3.5-5.1); Protein, Total 6.6 g/dL (6.0-8.3); Sodium 140 mmol/L (136-145)
[2020-02-04] MEDS: Carvedilol 25 MG TAB PO SCH (09:19)
[2020-02-04] MEDS: Calcium Carbonate 600 MG + Vit D TAB PO SCH (09:19)
[2020-02-04] MEDS: Ascorbic Acid 500 mg Chewable Tablet PO SCH (09:20)
[2020-02-04] MEDS: Hydrochlorothiazide 25 MG TAB PO SCH (09:20)
[2020-02-04] MEDS: Aspirin 81 mg Enteric Coated Tablet PO SCH (09:20)
[2020-02-04] MEDS: Dexamethasone 4 mg/ml Vial SLOW IVP SCH (09:22)
[2020-02-04] MEDS: Enoxaparin Sodium 40 MG/0.4 ML SYRINGE SC SCH ×2 (09:22→20:28)
[2020-02-04] MEDS: Multivit, Therapeutic 1 TAB PO SCH (09:22)
[2020-02-04] MEDS: Cholecalciferol (Vitamin D3) 400 UNITS TAB PO SCH (09:22)
[2020-02-04] MEDS: Polyethylene Glycol 3350 17 GM Packet PO SCH (09:23)
[2020-02-04] MEDS ORDERED: Amlodipine 5 MG TAB PO SCH (17:00)
[2020-02-04] MEDS: Carvedilol 6.25 MG TAB PO SCH (17:20)
[2020-02-04] MEDS: Zinc Sulfate 220 MG CAP PO SCH (20:28)
[2020-02-04] MEDS: Atorvastatin Calcium 20 MG TAB PO SCH (20:28)
[2020-02-04] MEDS: Montelukast Sodium 10 mg Tablet PO SCH (20:28)
[2020-02-04] MEDS: traZODone HCl 150 MG TAB PO SCH (20:28)
[2020-02-04] MEDS: cefTRIAXone\\ROCEPHIN 1 GM in Sodium Chloride 0.9% 100 ML IVPB SCH (20:28)
[2020-02-04] MEDS: rOPINIRole HCl 1 MG TAB PO SCH (20:28)
--- NOTE | 2020-02-04 22:04 | PDOC.HOSPP ---
- Subjective Encounter Date: 02/04/20 Encounter Time: 16:00 Subjective: Patient seen and examined for COVID-19 pneumonia. Feels the same. Continues to have cough with minimal production. No wheezing or chest pain reported. - Objective Vital Signs & Weight: Vital Signs (12 hours) Temp Pulse Resp BP BP Pulse Ox 02/04/20 19:15 97.8 F 65 20 147/74 H 95 02/04/20 17:19 53 L 02/04/20 16:55 98.2 F 64 14 134/75 92 L 02/04/20 11:35 97.8 F 53 L 16 156/84 H 94 L Weight Weight 218 lb 14.704 oz I&O: 02/03/20 02/04/20 02/05/20 06:59 06:59 06:59 Intake Total 3290 3000 800 Balance 3290 3000 800 Result Diagrams: 02/05/20 05:43 02/05/20 05:43 Hospitalist ROS - Review of Systems Respiratory: reports: cough, shortness of breath, SOB with excertion. denies: dry, hemoptysis, pleuritic pain, sputum, wheezing, other Gastrointestinal: denies: nausea, vomiting, abdominal pain, diarrhea, constipati on, melena, hematochezia, other Genitourinary: denies: dysuria, frequency, incontinence, hematuria, retention, other - Medication Medications: Active Medications Generic Name Dose Route Start Last Admin Trade Name Freq PRN Reason Stop Dose Admin Albuterol Sulfate 2 puff 02/02/20 14:30 02/04/20 18:45 Proventil Inhaler 6.7 G (200 Inhalations) INH 2 puff [id number] MARTÍN Administration Alprazolam 0.25 mg 02/02/20 12:37 02/04/20 01:26 Alprazolam 0.25 Mg Tab PO 0.25 mg BIDPRN PRN Administration Anxiety Artificial Tears 2 drop 02/03/20 16:41 02/03/20 20:56 Artificial Tear Leslie 15 Ml Bot EA EYE 2 drop QIDPRN PRN Administration Dry Eyes Ascorbic Acid 1,000 mg 02/02/20 09:00 02/04/20 09:20 Ascorbic Acid 500 Mg Chewable Tablet PO 1,000 mg DAILY MARTÍN Administration Aspirin 81 mg 02/01/20 09:00 02/04/20 09:20 Aspirin 81 Mg Enteric Coated Tablet PO 81 mg DAILY MARTÍN Administration Atorvastatin Calcium 20 mg 02/01/20 21:00 02/04/20 20:28 Atorvastatin Calcium 20 Mg Tab PO 20 mg HS MARTÍN Administration Baclofen 5 mg 01/31/20 23:59 02/04/20 17:15 Baclofen 10 Mg Tab PO 5 mg Q6HR MARTÍN Administration Calcium/Vitamin D 1 tab 02/03/20 08:00 02/04/20 09:19 Calcium Carbonate 600 Mg + Vit D Tab PO 1 tab QAM-WM MARTÍN Administration Carvedilol 6.25 mg 02/04/20 17:00 02/04/20 17:20 Carvedilol 6.25 Mg Tab PO 6.25 mg BID-WM MARTÍN Administration Chlorphenir/Hydrocodone Polistirex 5 ml 01/31/20 23:56 02/03/20 20:56 Hydrocodone/Chlorphen Polis 5 Ml Udcup PO 5 ml HSPRN PRN Administration Cough Cholecalciferol 400 units 02/03/20 09:00 02/04/20 09:22 Cholecalciferol (Vitamin D3) 400 Units Tab PO 400 units DAILY MARTÍN Administration Dexamethasone 6 mg 02/01/20 09:00 02/04/20 09:22 Dexamethasone 4 Mg/Ml Vial SLOW IVP 6 mg DAILY MARTÍN Administration Enoxaparin Sodium 40 mg 02/02/20 21:00 02/04/20 20:28 Enoxaparin Sodium 40 Mg/0.4 Ml Syringe SC 40 mg 0900,2100 MARTÍN Administration Hydrochlorothiazide 12.5 mg 02/01/20 09:00 02/04/20 09:20 Hydrochlorothiazide 25 Mg Tab PO 12.5 mg DAILY MARTÍN Administration Ceftriaxone Sodium 1 gm/ 100 mls @ 200 mls/hr 02/01/20 20:00 02/04/20 20:28 Sodium Chloride IVPB 100 mls 2000 MARTÍN Administration Montelukast Sodium 10 mg 02/01/20 21:00 02/04/20 20:28 Montelukast Sodium 10 Mg Tablet PO 10 mg HS MARTÍN Administration Multivitamins 1 tab 02/02/20 09:00 02/04/20 09:22 Multivit, Therapeutic 1 Tab PO 1 tab DAILY MARTÍN Administration Ondansetron HCl 4 mg 02/01/20 00:12 02/01/20 00:37 Ondansetron Pf 4 Mg/2 Ml Vial IVP 4 mg Q6H PRN Administration Nausea/Vomiting Pantoprazole Sodium 40 mg 02/01/20 09:00 02/04/20 20:28 Pantoprazole 40 Mg Tab PO 40 mg BID MARTÍN Administration Polyethylene Glycol 17 gm 02/02/20 09:00 02/04/20 09:23 Polyethylene Glycol 3350 17 Gm Packet PO 17 gm DAILY MARTÍN Administration Ropinirole HCl 1 mg 02/01/20 21:00 02/04/20 20:28 Ropinirole Hcl 1 Mg Tab PO 1 mg QPM MARTÍN Administration Sodium Chloride 10 ml 02/02/20 09:00 02/04/20 20:28 Flush - Normal Saline 10 Ml Syringe IVF 10 ml Q12HR MARTÍN Administration Trazodone HCl 150 mg 02/01/20 21:00 02/04/20 20:28 Trazodone Hcl 150 Mg Tab PO 150 mg HS MARTÍN Administration Zinc Sulfate 220 mg 02/02/20 21:00 02/04/20 20:28 Zinc Sulfate 220 Mg Cap PO 220 mg HS MARTÍN Administration - Exam General Appearance: NAD Heart: RRR, no gallops Respiratory: rales, rhonchi Gastrointestinal: soft, non-tender, no guarding, no rigidity Extremities: no cyanosis Neurological: no new deficit Hosp A/P - Plan DVT proph w/lovenox, DVT proph w/SCDs Acute hypoxic respiratory failure due to COVID-19 pneumoniasymptom onset January 22 UTI Hypertension CKD stage II Hyperlipidemia Chronic low back pain Restless leg syndrome Anxiety Obesity with a BMI 33.3 Plan: Continue close monitoring. Continue IV ceftriaxone for UTI. Continue dexamethasone with nebulizer treatments. DVT prophylaxis. Consult case packer for shelter facility per patient request
[2020-02-05] MEDS: Baclofen 10 MG TAB PO SCH ×5 (00:19→23:49)
[2020-02-05] MEDS: Acetaminophen 325 MG TAB PO PRN ×3 (01:45→20:10)
[2020-02-05] MEDS ORDERED: hydrALAZINE 10 MG TAB PO SCH (02:15)
[2020-02-05] MEDS: PROVENTIL INHALER 6.7 G (200 INHALATIONS) INH SCH ×6 (02:28→23:05)
[2020-02-05] MEDS: ALPRAZolam 0.25 MG TAB PO PRN (02:28)
[2020-02-05] MEDS ORDERED: Ibuprofen 600 MG TAB PO SCH (03:45)
[2020-02-05] MEDS ORDERED: Morphine 2 MG/ML VIAL SLOW IVP SCH (05:15)
[2020-02-05 06:20] LABS: ALT (SGPT) 133 U/L (8-55); AST (SGOT) 107 U/L (5-34); Albumin 3.4 g/dL (3.4-4.8); Alkaline Phosphatase 79 U/L (40-110); Anion Gap 13 mmol/L (10-20); BUN (Urea Nitrogen) 18 mg/dL (9.8-20.1); Bilirubin, Total 0.3 mg/dL (0.2-1.2); Calc. Creatinine Clearance 119 mL/min (70-130); Calcium 8.8 mg/dL (7.8-10.44); Carbon Dioxide 30 mmol/L (23-31); Chloride 100 mmol/L (98-107); Estimated GFR-MDRD 85; Glucose 118 mg/dL (83-110); Potassium 3.6 mmol/L (3.5-5.1); Protein, Total 6.4 g/dL (6.0-8.3); Sodium 139 mmol/L (136-145)
[2020-02-05 06:32] LABS: Band 2 % (5-11); Hemoglobin 12.9 g/dL (12.0-16.0); Lymphocytes 15 % (21-51); MDiff Complete? YES; Mean Corpuscular HGB CONC 34.7 g/dL (32.0-36.0); Mean Corpuscular Hemoglobin 30.6 pg (27.0-31.0); Metamyelocyte 1 % (0-0); Monocytes 3 % (0-10); Myelocyte 1 % (0-0); Neutrophil 78 % (42-75); Platelet Count 243 thou/uL (130-400); RBC Distribution Width 11.6 % (11.5-14.5); Red Blood Cell (RBC) Count 4.23 mill/uL (4.20-5.40); White Blood Cell (WBC) Count 11.4 thou/uL (4.8-10.8)
--- NOTE | 2020-02-05 08:11 | RAD ---
EXAM: 3 views of the right shoulder HISTORY: Shoulder pain COMPARISON: Chest x-ray 01/31/2020 FINDINGS: There is no evidence of acute fracture or dislocation. No degenerative changes are present. No soft tissue swelling is seen. The visualized thorax is unremarkable. Hardware seen in the cervical spine. IMPRESSION: No evidence of acute osseous abnormality.
[2020-02-05] MEDS: Carvedilol 6.25 MG TAB PO SCH ×2 (09:47→16:40)
[2020-02-05] MEDS: Calcium Carbonate 600 MG + Vit D TAB PO SCH (09:47)
[2020-02-05] MEDS: Amlodipine 5 MG TAB PO SCH (09:48)
[2020-02-05] MEDS: Cholecalciferol (Vitamin D3) 400 UNITS TAB PO SCH (09:48)
[2020-02-05] MEDS: Dexamethasone 4 mg/ml Vial SLOW IVP SCH (09:48)
[2020-02-05] MEDS: Ascorbic Acid 500 mg Chewable Tablet PO SCH (09:48)
[2020-02-05] MEDS: Aspirin 81 mg Enteric Coated Tablet PO SCH (09:48)
[2020-02-05] MEDS: Multivit, Therapeutic 1 TAB PO SCH (09:49)
[2020-02-05] MEDS: Polyethylene Glycol 3350 17 GM Packet PO SCH (09:49)
[2020-02-05] MEDS: Hydrochlorothiazide 25 MG TAB PO SCH (09:49)
[2020-02-05] MEDS: Enoxaparin Sodium 40 MG/0.4 ML SYRINGE SC SCH ×2 (09:49→20:11)
[2020-02-05] MEDS ORDERED: Cyclobenzaprine 10 MG TAB PO PRN (10:35)
--- NOTE | 2020-02-05 10:53 | ULT ---
VENOUS DOPPLER ULTRASOUND OF THE RIGHT UPPER EXTREMITY: Date: 02/05/2020 HISTORY: Right upper extremity pain and edema. TECHNIQUE: Escoto scale ultrasound with color flow and spectral Doppler imaging of the deep venous system of the r ight upper extremity was performed. FINDINGS: There is good flow, compression, and spectral waveforms in the deep veins of the right upper extremit y, including the internal jugular, subclavian, axillary, brachial, radial, ulnar, basilic, and cephal ic veins. IMPRESSION: No evidence of deep venous thrombosis in the right upper extremity. POS: AH
[2020-02-05] MEDS: traMADol HCl 50 MG TAB PO PRN ×2 (11:31→16:39)
--- NOTE | 2020-02-05 19:27 | PDOC.HOSPP ---
- Subjective Encounter Date: 02/05/20 Encounter Time: 10:30 Subjective: Patient seen and examined for acute hypoxic respiratory failure due to COVID-19 pneumonia. Had sudden onset of pain in the right shoulder that started last night when she was trying to get out of her bed. Pain is moderate to severe worse on movement. She denies any weakness or numbness of the right arm. - Objective Vital Signs & Weight: Vital Signs (12 hours) Temp Pulse Resp BP BP BP Pulse Ox 02/05/20 16:50 97.8 F 52 L 16 151/78 H 93 L 02/05/20 16:40 184/92 H 02/05/20 11:44 97.7 F 56 L 14 134/83 96 02/05/20 09:48 56 L 02/05/20 09:47 184/92 H 02/05/20 08:40 97.9 F 54 L 14 147/83 H 94 L Weight Weight 218 lb 14.704 oz I&O: 02/04/20 02/05/20 02/06/20 06:59 06:59 06:59 Intake Total 3000 1700 800 Balance 3000 1700 800 Result Diagrams: 02/05/20 05:43 02/05/20 05:43 Additional Labs: Abnormal Lab Results - Last 48 hrs 02/04/20 05:58: Albumin/Globulin Ratio 1.1 L 02/04/20 05:58: MPV 7.1 L, Lymphocytes % 20.0 L, Monocytes # 0.7 H 02/05/20 05:43: AST 107 H, ALT 133 H, Albumin/Globulin Ratio 1.1 L 02/05/20 05:43: WBC 11.4 H, MPV 7.0 L, Neutrophils % (Manual) 78 H, Band Neuts % (Manual) 2 L, Lymphocytes % (Manual) 15 L, Metamyelocytes % (Man) 1 H, Myelocytes % 1 H 02/05/20 05:43: Ferritin 695.93 H 02/05/20 05:43: D-Dimer 0.61 H Microbiology - Entire Visit 02/02/20 00:30 Urine clean catch Urine Culture - Final Presumptive Pseudomonas Radiology Reviewed by me: Yes (Right shoulder x-rayno fractures) Hospitalist ROS - Review of Systems Cardiovascular: denies: chest pain, palpitations, orthopnea, paroxysmal noc. dyspnea, edema, light headedness, other Gastrointestinal: denies: nausea, vomiting, abdominal pain, diarrhea, constipation, melena, hematochezia, other - Medication Medications: Active Medications Generic Name Dose Route Start Last Admin Trade Name Freq PRN Reason Stop Dose Admin Acetaminophen 650 mg 02/05/20 01:33 02/05/20 10:00 Acetaminophen 325 Mg Tab PO 650 mg Q6H PRN Administration Fever/Mild Pain Albuterol Sulfate 2 puff 02/02/20 14:30 02/05/20 18:40 Proventil Inhaler 6.7 G (200 Inhalations) INH 2 puff [id number] MARTÍN Administration Alprazolam 0.25 mg 02/02/20 12:37 02/05/20 02:28 Alprazolam 0.25 Mg Tab PO 0.25 mg BIDPRN PRN Administration Anxiety Amlodipine Besylate 5 mg 02/05/20 09:00 02/05/20 09:48 Amlodipine 5 Mg Tab PO 5 mg DAILY MARTÍN Administration Artificial Tears 2 drop 02/03/20 16:41 02/03/20 20:56 Artificial Tear Leslie 15 Ml Bot EA EYE 2 drop QIDPRN PRN Administration Dry Eyes Ascorbic Acid 1,000 mg 02/02/20 09:00 02/05/20 09:48 Ascorbic Acid 500 Mg Chewable Tablet PO 1,000 mg DAILY MARTÍN Administration Aspirin 81 mg 02/01/20 09:00 02/05/20 09:48 Aspirin 81 Mg Enteric Coated Tablet PO 81 mg DAILY MARTÍN Administration Atorvastatin Calcium 20 mg 02/01/20 21:00 02/04/20 20:28 Atorvastatin Calcium 20 Mg Tab PO 20 mg HS MARTÍN Administration Baclofen 5 mg 01/31/20 23:59 02/05/20 18:40 Baclofen 10 Mg Tab PO 5 mg Q6HR MARTÍN Administration Calcium/Vitamin D 1 tab 02/03/20 08:00 02/05/20 09:47 Calcium Carbonate 600 Mg + Vit D Tab PO 1 tab QAM-WM MARTÍN Administration Carvedilol 6.25 mg 02/04/20 17:00 02/05/20 16:40 Carvedilol 6.25 Mg Tab PO 6.25 mg BID-WM MARTÍN Administration Chlorphenir/Hydrocodone Polistirex 5 ml 01/31/20 23:56 02/03/20 20:56 Hydrocodone/Chlorphen Polis 5 Ml Udcup PO 5 ml HSPRN PRN Administration Cough Cholecalciferol 400 units 02/03/20 09:00 02/05/20 09:48 Cholecalciferol (Vitamin D3) 400 Units Tab PO 400 units DAILY MARTÍN Administration Dexamethasone 6 mg 02/01/20 09:00 02/05/20 09:48 Dexamethasone 4 Mg/Ml Vial SLOW IVP 6 mg DAILY MARTÍN Administration Enoxaparin Sodium 40 mg 02/02/20 21:00 02/05/20 09:49 Enoxaparin Sodium 40 Mg/0.4 Ml Syringe SC 40 mg 09,2099 MARTÍN Administration Hydrochlorothiazide 12.5 mg 02/01/20 09:00 02/05/20 09:49 Hydrochlorothiazide 25 Mg Tab PO 12.5 mg DAILY MARTÍN Administration Ceftriaxone Sodium 1 gm/ 100 mls @ 200 mls/hr 02/01/20 20:00 02/04/20 20:28 Sodium Chloride IVPB 100 mls 2000 MARTÍN Administration Montelukast Sodium 10 mg 02/01/20 21:00 02/04/20 20:28 Montelukast Sodium 10 Mg Tablet PO 10 mg HS MARTÍN Administration Multivitamins 1 tab 02/02/20 09:00 02/05/20 09:49 Multivit, Therapeutic 1 Tab PO 1 tab DAILY MARTÍN Administration Ondansetron HCl 4 mg 02/01/20 00:12 02/01/20 00:37 Ondansetron Pf 4 Mg/2 Ml Vial IVP 4 mg Q6H PRN Administration Nausea/Vomiting Pantoprazole Sodium 40 mg 02/01/20 09:00 02/05/20 09:49 Pantoprazole 40 Mg Tab PO 40 mg BID MARTÍN Administration Polyethylene Glycol 17 gm 02/02/20 09:00 02/05/20 09:49 Polyethylene Glycol 3350 17 Gm Packet PO 17 gm DAILY MARTÍN Administration Ropinirole HCl 1 mg 02/01/20 21:00 02/04/20 20:28 Ropinirole Hcl 1 Mg Tab PO 1 mg QPM MARTÍN Administration Sodium Chloride 10 ml 02/02/20 09:00 02/05/20 09:49 Flush - Normal Saline 10 Ml Syringe IVF 10 ml Q12HR MARTÍN Administration Tramadol HCl 50 mg 02/05/20 10:36 02/05/20 16:39 Tramadol Hcl 50 Mg Tab PO 50 mg Q4H PRN Administration Moderate Pain (4-6) Trazodone HCl 150 mg 02/01/20 21:00 02/04/20 20:28 Trazodone Hcl 150 Mg Tab PO 150 mg HS MARTÍN Administration Zinc Sulfate 220 mg 02/02/20 21:00 02/04/20 20:28 Zinc Sulfate 220 Mg Cap PO 220 mg HS MARTÍN Administration - Exam General Appearance: ill appearing Neck: supple, no JVD Heart: RRR, no gallops Respiratory: no wheezes, rales, rhonchi Gastrointestinal: soft, non-tender, normal bowel sounds Extremities: no cyanosis, no clubbing Extremities - other findings: Tenderness over the right deltoid, pain on right shoulder abduction Neurological: no new deficit Musculoskeletal: generalized weakness Psychiatric: A&O x 3 Hosp A/P - Plan DVT proph w/lovenox, DVT proph w/SCDs Acute hypoxic respiratory failure due to COVID-19 pneumoniasymptom onset O ctober 28 UTI Right shoulder pain? Rotator cuff injuryonset 02/04 Hypertension CKD stage II Hyperlipidemia Chronic low back pain Restless leg syndrome Anxiety Obesity with a BMI 33.3 Plan: Right shoulder x-ray negative for fractures or dislocation. Will start her on muscle relaxant. Right arm sling will be placed. Pain control. Continue dexamethasone along with O2 supplementation for COVID-19. Continue COVID-19 isolation. Continue IV ceftriaxone for UTI. Ferritin level increased to 695 from 394 LFTs are worsening to. CRP has improved. Will discuss with infectious disease in a.m. recheck labs in a.m.
[2020-02-05] MEDS: cefTRIAXone\\ROCEPHIN 1 GM in Sodium Chloride 0.9% 100 ML IVPB SCH (20:09)
[2020-02-05] MEDS: traZODone HCl 150 MG TAB PO SCH (20:10)
[2020-02-05] MEDS: Montelukast Sodium 10 mg Tablet PO SCH (20:10)
[2020-02-05] MEDS: rOPINIRole HCl 1 MG TAB PO SCH (20:10)
[2020-02-05] MEDS: Zinc Sulfate 220 MG CAP PO SCH (20:10)
[2020-02-05] MEDS: Atorvastatin Calcium 20 MG TAB PO SCH (20:10)
[2020-02-06] MEDS: PROVENTIL INHALER 6.7 G (200 INHALATIONS) INH SCH ×6 (02:42→22:10)
[2020-02-06] MEDS: Baclofen 10 MG TAB PO SCH ×3 (05:56→18:18)
[2020-02-06 07:03] LABS: Hemoglobin 13.8 g/dL (12.0-16.0); Mean Corpuscular Hemoglobin 30.5 pg (27.0-31.0); Mean Corpuscular Volume 89.6 fL (78.0-98.0); Mean Platelet Volume 7.6 fL (7.4-10.4); Platelet Count 288 thou/uL (130-400); RBC Distribution Width 11.8 % (11.5-14.5); Red Blood Cell (RBC) Count 4.51 mill/uL (4.20-5.40); White Blood Cell (WBC) Count 9.3 thou/uL (4.8-10.8)
[2020-02-06 07:17] LABS: ALT (SGPT) 134 U/L (8-55); AST (SGOT) 71 U/L (5-34); Albumin 3.5 g/dL (3.4-4.8); Alkaline Phosphatase 79 U/L (40-110); Anion Gap 10 mmol/L (10-20); BUN (Urea Nitrogen) 20 mg/dL (9.8-20.1); Bilirubin, Total 0.3 mg/dL (0.2-1.2); CRP (Inflammatory) 4.01 mg/dL (= or < 0.5); Calc. Creatinine Clearance 109 mL/min (70-130); Calcium 9.4 mg/dL (7.8-10.44); Carbon Dioxide 34 mmol/L (23-31); Chloride 99 mmol/L (98-107); Estimated GFR-MDRD 77; Globulin 3.6 g/dL (2.4-3.5); Glucose 123 mg/dL (83-110); Magnesium 2.2 mg/dL (1.6-2.6); Phosphorus 3.4 mg/dL (2.3-4.7); Potassium 4.3 mmol/L (3.5-5.1); Protein, Total 7.1 g/dL (6.0-8.3); Sodium 139 mmol/L (136-145)
[2020-02-06] MEDS: Enoxaparin Sodium 40 MG/0.4 ML SYRINGE SC SCH (08:05)
[2020-02-06] MEDS: Amlodipine 5 MG TAB PO SCH (08:06)
[2020-02-06] MEDS: Calcium Carbonate 600 MG + Vit D TAB PO SCH (08:06)
[2020-02-06] MEDS: Cholecalciferol (Vitamin D3) 400 UNITS TAB PO SCH (08:07)
[2020-02-06] MEDS: Multivit, Therapeutic 1 TAB PO SCH (08:07)
[2020-02-06] MEDS: Aspirin 81 mg Enteric Coated Tablet PO SCH (08:07)
[2020-02-06] MEDS: Hydrochlorothiazide 25 MG TAB PO SCH (08:07)
[2020-02-06] MEDS: Ascorbic Acid 500 mg Chewable Tablet PO SCH (08:07)
[2020-02-06] MEDS: Polyethylene Glycol 3350 17 GM Packet PO SCH (08:07)
[2020-02-06] MEDS: Carvedilol 6.25 MG TAB PO SCH ×2 (08:07→17:16)
[2020-02-06] MEDS: Dexamethasone 4 mg/ml Vial SLOW IVP SCH (08:08)
[2020-02-06 08:18] LABS: Band 2 % (5-11); Lymphocytes 8 % (21-51); MDiff Complete? YES; Monocytes 11 % (0-10); Neutrophil 78 % (42-75); RBC Morphology Normal; Reactive Lymphocytes 1 % (0-10)
--- NOTE | 2020-02-06 16:21 | CON ---
DATE OF CONSULTATION: 02/06/2020 REASON FOR CONSULTATION: COVID pneumonia. HISTORY OF PRESENT ILLNESS: A 69-year-old who has a history of hyperlipidemia, GERD, and hypertension, who has had now about 16-day history of respiratory symptoms and anorexia, and she was tested on 01/28, and has tested positive, and then was admitted on the , so by the time she was admitted, she was beyond the threshold for remdesivir, looks like. Anyway, she did not get remdesivir, I think, appropriately. So today is her 1st week of hospital stay and she is still having a little bit of cough, but not much. She is on 3 L nasal cannula, saturating at 95%. She appears comfortable at rest. Speaking in full sentences. Denies any headaches. No sore throat, odynophagia, or dysphagia. No chest pain. No abdominal pain or diarrhea. No genitourinary symptoms. No joint symptoms. PAST MEDICAL HISTORY: 1. Hypertension. 2. Obesity. 3. Hyperlipidemia. 4. Back surgeries. 5. Hysterectomy. 6. Cholecystectomy. 7. Appendectomy. SOCIAL HISTORY: Never smoker. FAMILY HISTORY: Noncontributory. CURRENT MEDICATIONS: 1. Albuterol. 2. Norvasc. 3. Vitamin C. 4. Ecotrin. 5. Lipitor. 6. Coreg. 7. Tussionex. 8. Enoxaparin 40 mg daily. 9. Decadron 6 mg daily. 10. Trazodone. 11. Tramadol. 12. . 13. MiraLAX. ALLERGIES: CODEINE, MEPERIDINE, MORPHINE, AND SILVADENE. PHYSICAL EXAMINATION: VITAL SIGNS: She has been afebrile, BP 180/90, flow rate is at 3 with oxygen saturating at 95, blood pressure is normal. GENERAL: Appears in no distress. SKIN: Normal. Peripheral IV access. She is voiding in the bedside commode. No lymphadenopathy. HEENT: Ocular movements conjugate. Oral cavity normal. NECK: Supple. LUNGS: Few crackles here and there. HEART: S1 and S2. Regular rate. ABDOMEN: Soft, not distended or tender. No ascites. No bladder distention. EXTREMITIES: Moves extremities equally. LABORATORY DATA: White cell count was 6.7, now 9.3; hemoglobin 13.8; platelets 288 with 78% neutrophils. D-dimer went up for some reason to greater than 20 today. The ferritin is going down after peaking at 695 yesterday. A C-reactive protein also went up from less than 0.5 to 4, it is not clear why. She had a vascular ultrasound done, which showed no evidence of deep vein thrombosis. She has a chest CT on admission, which showed scattered mild ground-glass densities throughout the lungs. ASSESSMENT: 1. Obesity. 2. Hypertension. 3. Moderate COVID infection. This is the, I think, 15th day of illness and she is only on 3 L and saturating pretty well at 95%, so I think that we are hoping for stability, although the increase in D-dimer and the CRP is of concern. She is not eligible for antiviral treatment at this point in time. Job ID: [id number]
--- NOTE | 2020-02-06 17:26 | PDOC.HOSPP ---
- Subjective Encounter Date: 02/06/20 Encounter Time: 10:30 Subjective: Patient seen and examined for respiratory failure due to COVID-19. No significant change in shortness of breath. Had some hemoptysis earlier that has resolved. No fever or chills. Right shoulder pain improved - Objective Vital Signs & Weight: Vital Signs (12 hours) Temp Pulse Resp BP BP BP Pulse Ox 02/06/20 17:16 184/92 H 02/06/20 08:07 184/92 H 02/06/20 08:06 55 L 02/06/20 08:00 98.4 F 68 18 178/77 H 96 02/06/20 06:10 55 L 18 185/75 H 95 Weight Weight 218 lb 14.704 oz I&O: 02/05/20 02/06/20 02/07/20 06:59 06:59 06:59 Intake Total 1700 1500 Balance 1700 1500 Result Diagrams: 02/06/20 06:09 02/06/20 06:09 Additional Labs: Abnormal Lab Results - Last 48 hrs 02/05/20 05:43: AST 107 H, ALT 133 H, Albumin/Globulin Ratio 1.1 L 02/05/20 05:43: WBC 11.4 H, MPV 7.0 L, Neutrophils % (Manual) 78 H, Band Neuts % (Manual) 2 L, Lymphocytes % (Manual) 15 L, Metamyelocytes % (Man) 1 H, Myelocytes % 1 H 02/05/20 05:43: Ferritin 695.93 H 02/05/20 05:43: D-Dimer 0.61 H 02/06/20 06:09: Carbon Dioxide 34 H, AST 71 H, ALT 134 H, C-Reactive Protein 4.01 H, Globulin 3.6 H, Albumin/Globulin Ratio 1.0 L 02/06/20 06:09: Ferritin 559.43 H 02/06/20 06:09: Neutrophils % (Manual) 78 H, Band Neuts % (Manual) 2 L, Lymphocytes % (Manual) 8 L, Monocytes % (Manual) 11 H 02/06/20 06:09: D-Dimer Greater than 20.00 H Microbiology - Entire Visit 02/02/20 00:30 Urine clean catch Urine Culture - Final Presumptive Pseudomonas Radiology Reviewed by me: Yes (Shoulder x-rayno acute fractures) Hospitalist ROS - Review of Systems Cardiovascular: denies: chest pain, palpitations, orthopnea, paroxysmal noc. dyspnea, edema, light headedness, other Gastrointestinal: denies: nausea, vomiting, abdominal pain, diarrhea, constipation, melena, hematochezia, other - Medication Medications: Active Medications Generic Name Dose Route Start Last Admin Trade Name Freq PRN Reason Stop Dose Admin Acetaminophen 650 mg 02/05/20 01:33 02/05/20 20:10 Acetaminophen 325 Mg Tab PO 650 mg Q6H PRN Administration Fever/Mild Pain Albuterol Sulfate 2 puff 02/02/20 14:30 02/06/20 14:30 Proventil Inhaler 6.7 G (200 Inhalations) INH 2 puff [id number] MARTÍN Administration Alprazolam 0.25 mg 02/02/20 12:37 02/05/20 02:28 Alprazolam 0.25 Mg Tab PO 0.25 mg BIDPRN PRN Administration Anxiety Amlodipine Besylate 5 mg 02/05/20 09:00 02/06/20 08:06 Amlodipine 5 Mg Tab PO 5 mg DAILY MARTÍN Administration Artificial Tears 2 drop 02/03/20 16:41 02/03/20 20:56 Artificial Tear Leslie 15 Ml Bot EA EYE 2 drop QIDPRN PRN Administration Dry Eyes Ascorbic Acid 1,000 mg 02/02/20 09:00 02/06/20 08:07 Ascorbic Acid 500 Mg Chewable Tablet PO 1,000 mg DAILY MARTÍN Administration Aspirin 81 mg 02/01/20 09:00 02/06/20 08:07 Aspirin 81 Mg Enteric Coated Tablet PO 81 mg DAILY MARTÍN Administration Atorvastatin Calcium 20 mg 02/01/20 21:00 02/05/20 20:10 Atorvastatin Calcium 20 Mg Tab PO 20 mg HS MARTÍN Administration Baclofen 5 mg 01/31/20 23:59 02/06/20 13:43 Baclofen 10 Mg Tab PO 5 mg Q6HR MARTÍN Administration Calcium/Vitamin D 1 tab 02/03/20 08:00 02/06/20 08:06 Calcium Carbonate 600 Mg + Vit D Tab PO 1 tab QAM-WM MARTÍN Administration Carvedilol 6.25 mg 02/04/20 17:00 02/06/20 17:16 Carvedilol 6.25 Mg Tab PO 6.25 mg BID-WM MARTÍN Administration Chlorphenir/Hydrocodone Polistirex 5 ml 01/31/20 23:56 02/03/20 20:56 Hydrocodone/Chlorphen Polis 5 Ml Udcup PO 5 ml HSPRN PRN Administration Cough Cholecalciferol 400 units 02/03/20 09:00 02/06/20 08:07 Cholecalciferol (Vitamin D3) 400 Units Tab PO 400 units DAILY MARTÍN Administration Dexamethasone 6 mg 02/01/20 09:00 02/06/20 08:08 Dexamethasone 4 Mg/Ml Vial SLOW IVP 6 mg DAILY MARTÍN Administration Hydrochlorothiazide 12.5 mg 02/01/20 09:00 02/06/20 08:07 Hydrochlorothiazide 25 Mg Tab PO 12.5 mg DAILY MARTÍN Administration Montelukast Sodium 10 mg 02/01/20 21:00 02/05/20 20:10 Montelukast Sodium 10 Mg Tablet PO 10 mg HS MARTÍN Administration Multivitamins 1 tab 02/02/20 09:00 02/06/20 08:07 Multivit, Therapeutic 1 Tab PO 1 tab DAILY MARTÍN Administration Ondansetron HCl 4 mg 02/01/20 00:12 02/01/20 00:37 Ondansetron Pf 4 Mg/2 Ml Vial IVP 4 mg Q6H PRN Administration Nausea/Vomiting Pantoprazole Sodium 40 mg 02/01/20 09:00 02/06/20 08:07 Pantoprazole 40 Mg Tab PO 40 mg BID MARTÍN Administration Polyethylene Glycol 17 gm 02/02/20 09:00 02/06/20 08:07 Polyethylene Glycol 3350 17 Gm Packet PO 17 gm DAILY MARTÍN Administration Ropinirole HCl 1 mg 02/01/20 21:00 02/05/20 20:10 Ropinirole Hcl 1 Mg Tab PO 1 mg QPM MARTÍN Administration Sodium Chloride 10 ml 02/02/20 09:00 02/06/20 08:06 Flush - Normal Saline 10 Ml Syringe IVF 10 ml Q12HR MARTÍN Administration Tramadol HCl 50 mg 02/05/20 10:36 02/05/20 16:39 Tramadol Hcl 50 Mg Tab PO 50 mg Q4H PRN Administration Moderate Pain (4-6) Trazodone HCl 150 mg 02/01/20 21:00 02/05/20 20:10 Trazodone Hcl 150 Mg Tab PO 150 mg HS MARTÍN Administration Zinc Sulfate 220 mg 02/02/20 21:00 02/05/20 20:10 Zinc Sulfate 220 Mg Cap PO 220 mg HS MARTÍN Administration - Exam General Appearance: ill appearing Neck: supple, no JVD Heart: RRR, no gallops Respiratory: no wheezes, rales, rhonchi Gastrointestinal: soft, non-tender, no guarding, no rigidity Extremities: no cyanosis Neurological: no new deficit Musculoskeletal: generalized weakness Hosp A/P - Plan DVT proph w/lovenox, DVT proph w/SCDs Acute hypoxic respiratory failure due to COVID-19 pneumoniasymptom onset January 22 UTIcompleted antibiotic Right shoulder pain? Rotator cuff injuryonset 02/04improving Hypertension CKD stage II Hyperlipidemia Chronic low back pain Restless leg syndrome Anxiety Obesity with a BMI 33.3 Plan: D-dimer greater than 20 from 0.61. Ferritin improved to 559 from 695. CRP level 4.0 from less than 0.5. LFTs improving. Await infectious disease input. Continue IV Decadron. Continue COVID-19 isolation. Discontinue ceftriaxone. Continue amlodipine, Lipitor, carvedilol and other medications as above. Reduce Lovenox to once a day due to some hemoptysis. Monitor inflammatory markers. Continue O2 supplementation. detention facility evaluation.
[2020-02-06] MEDS: Atorvastatin Calcium 20 MG TAB PO SCH (20:02)
[2020-02-06] MEDS: Montelukast Sodium 10 mg Tablet PO SCH (20:02)
[2020-02-06] MEDS: Zinc Sulfate 220 MG CAP PO SCH (20:02)
[2020-02-06] MEDS: rOPINIRole HCl 1 MG TAB PO SCH (20:02)
[2020-02-06] MEDS: traZODone HCl 150 MG TAB PO SCH (20:02)
[2020-02-06] MEDS: diphenhydrAMINE 25 MG CAP PO PRN (20:22)
[2020-02-07] MEDS: Baclofen 10 MG TAB PO SCH ×5 (00:44→23:48)
[2020-02-07] MEDS: ALPRAZolam 0.25 MG TAB PO PRN (01:16)
[2020-02-07] MEDS: PROVENTIL INHALER 6.7 G (200 INHALATIONS) INH SCH ×6 (02:50→23:48)
[2020-02-07] MEDS: traMADol HCl 50 MG TAB PO PRN ×4 (06:08→23:47)
[2020-02-07 07:10] LABS: ALT (SGPT) 97 U/L (8-55); AST (SGOT) 44 U/L (5-34); Albumin 3.3 g/dL (3.4-4.8); Alkaline Phosphatase 72 U/L (40-110); Anion Gap 9 mmol/L (10-20); BUN (Urea Nitrogen) 23 mg/dL (9.8-20.1); Bilirubin, Total 0.3 mg/dL (0.2-1.2); Calc. Creatinine Clearance 105 mL/min (70-130); Calcium 9.1 mg/dL (7.8-10.44); Carbon Dioxide 31 mmol/L (23-31); Chloride 102 mmol/L (98-107); Estimated GFR-MDRD 74; Globulin 3.2 g/dL (2.4-3.5); Glucose 106 mg/dL (83-110); Potassium 4.1 mmol/L (3.5-5.1); Protein, Total 6.5 g/dL (6.0-8.3); Sodium 138 mmol/L (136-145)
[2020-02-07 07:22] LABS: Hemoglobin 12.8 g/dL (12.0-16.0); Mean Corpuscular HGB CONC 33.4 g/dL (32.0-36.0); Mean Corpuscular Hemoglobin 30.1 pg (27.0-31.0); Mean Corpuscular Volume 90.1 fL (78.0-98.0); Mean Platelet Volume 7.4 fL (7.4-10.4); Platelet Count 287 thou/uL (130-400); RBC Distribution Width 11.8 % (11.5-14.5); Red Blood Cell (RBC) Count 4.24 mill/uL (4.20-5.40); White Blood Cell (WBC) Count 8.5 thou/uL (4.8-10.8)
[2020-02-07] MEDS: Enoxaparin Sodium 40 MG/0.4 ML SYRINGE SC SCH (08:11)
[2020-02-07] MEDS: Calcium Carbonate 600 MG + Vit D TAB PO SCH (08:12)
[2020-02-07] MEDS: Hydrochlorothiazide 25 MG TAB PO SCH (08:12)
[2020-02-07] MEDS: Ascorbic Acid 500 mg Chewable Tablet PO SCH (08:12)
[2020-02-07] MEDS: Aspirin 81 mg Enteric Coated Tablet PO SCH (08:12)
[2020-02-07] MEDS: Polyethylene Glycol 3350 17 GM Packet PO SCH (08:12)
[2020-02-07] MEDS: Multivit, Therapeutic 1 TAB PO SCH (08:12)
[2020-02-07] MEDS: Amlodipine 5 MG TAB PO SCH (08:12)
[2020-02-07] MEDS: Cholecalciferol (Vitamin D3) 400 UNITS TAB PO SCH (08:13)
[2020-02-07] MEDS: Carvedilol 6.25 MG TAB PO SCH ×2 (08:13→16:14)
[2020-02-07] MEDS: Dexamethasone 4 mg/ml Vial SLOW IVP SCH (08:15)
[2020-02-07 08:23] LABS: Band 2 % (5-11); Lymphocytes 24 % (21-51); MDiff Complete? YES; Metamyelocyte 1 % (0-0); Monocytes 8 % (0-10); Myelocyte 1 % (0-0); Neutrophil 63 % (42-75); Platelet Morphology Comment Appears Adequate; Polychromasia SLIGHT = 2-3 cells (100X) (0-2/hpf); Reactive Lymphocytes 1 % (0-10)
[2020-02-07] MEDS: Zinc Sulfate 220 MG CAP PO SCH (19:50)
[2020-02-07] MEDS: Atorvastatin Calcium 20 MG TAB PO SCH (19:51)
[2020-02-07] MEDS: rOPINIRole HCl 1 MG TAB PO SCH (19:51)
[2020-02-07] MEDS: traZODone HCl 150 MG TAB PO SCH (19:51)
[2020-02-07] MEDS: Montelukast Sodium 10 mg Tablet PO SCH (19:51)
--- NOTE | 2020-02-07 22:17 | PDOC.HOSPP ---
- Subjective Encounter Date: 02/07/20 Encounter Time: 10:00 Subjective: Patient seen and examined for COVID 19 pneumonia with respiratory failure. Shoulder pain is significantly improved. Cough with small amount of blood in the sputum. Feels generally weak and fatigued. Shortness of breath slowly improving. - Objective Vital Signs & Weight: Vital Signs (12 hours) Temp Pulse Resp BP BP Pulse Ox 02/07/20 21:54 97.6 F 63 18 136/68 92 L 02/07/20 16:14 184/92 H Weight Weight 218 lb 14.704 oz I&O: 02/06/20 02/07/20 02/08/20 06:59 06:59 06:59 Intake Total 1500 800 Balance 1500 800 Result Diagrams: 02/07/20 05:51 02/07/20 05:51 Radiology Reviewed by me: Yes (Chest x-ray) Hospitalist ROS - Review of Systems ROS unobtainable: due to endotracheal tube - Medication Medications: Active Medications Generic Name Dose Route Start Last Admin Trade Name Freq PRN Reason Stop Dose Admin Acetaminophen 650 mg 02/05/20 01:33 02/05/20 20:10 Acetaminophen 325 Mg Tab PO 650 mg Q6H PRN Administration Fever/Mild Pain Albuterol Sulfate 2 puff 02/02/20 14:30 02/07/20 19:03 Proventil Inhaler 6.7 G (200 Inhalations) INH Not Given [id number] MARTÍN Alprazolam 0.25 mg 02/02/20 12:37 02/07/20 01:16 Alprazolam 0.25 Mg Tab PO 0.25 mg BIDPRN PRN Administration Anxiety Amlodipine Besylate 5 mg 02/05/20 09:00 02/07/20 08:12 Amlodipine 5 Mg Tab PO 5 mg DAILY MARTÍN Administration Artificial Tears 2 drop 02/03/20 16:41 02/03/20 20:56 Artificial Tear Leslie 15 Ml Bot EA EYE 2 drop QIDPRN PRN Administration Dry Eyes Ascorbic Acid 1,000 mg 02/02/20 09:00 02/07/20 08:12 Ascorbic Acid 500 Mg Chewable Tablet PO 1,000 mg DAILY MARTÍN Administration Aspirin 81 mg 02/01/20 09:00 02/07/20 08:12 Aspirin 81 Mg Enteric Coated Tablet PO 81 mg DAILY MARTÍN Administration Atorvastatin Calcium 20 mg 02/01/20 21:00 02/07/20 19:51 Atorvastatin Calcium 20 Mg Tab PO 20 mg HS MARTÍN Administration Baclofen 5 mg 01/31/20 23:59 02/07/20 18:04 Baclofen 10 Mg Tab PO 5 mg Q6HR MARTÍN Administration Calcium/Vitamin D 1 tab 02/03/20 08:00 02/07/20 08:12 Calcium Carbonate 600 Mg + Vit D Tab PO 1 tab QAM-WM MARTÍN Administration Carvedilol 12.5 mg 02/07/20 17:00 02/07/20 16:14 Carvedilol 6.25 Mg Tab PO 12.5 mg BID-WM MARTÍN Administration Chlorphenir/Hydrocodone Polistirex 5 ml 01/31/20 23:56 02/03/20 20:56 Hydrocodone/Chlorphen Polis 5 Ml Udcup PO 5 ml HSPRN PRN Administration Cough Cholecalciferol 400 units 02/03/20 09:00 02/07/20 08:13 Cholecalciferol (Vitamin D3) 400 Units Tab PO 400 units DAILY MARTÍN Administration Dexamethasone 6 mg 02/01/20 09:00 02/07/20 08:15 Dexamethasone 4 Mg/Ml Vial SLOW IVP 6 mg DAILY MARTÍN Administration Diphenhydramine HCl 25 mg 02/02/20 12:37 02/06/20 20:22 Diphenhydramine 25 Mg Cap PO 25 mg Q6H PRN Administration Itching & Insomnia Enoxaparin Sodium 40 mg 02/07/20 09:00 02/07/20 08:11 Enoxaparin Sodium 40 Mg/0.4 Ml Syringe SC 40 mg 0900 MARTÍN Administration Hydrochlorothiazide 12.5 mg 02/01/20 09:00 02/07/20 08:12 Hydrochlorothiazide 25 Mg Tab PO 12.5 mg DAILY MARTÍN Administration Montelukast Sodium 10 mg 02/01/20 21:00 02/07/20 19:51 Montelukast Sodium 10 Mg Tablet PO 10 mg HS MARTÍN Administration Multivitamins 1 tab 02/02/20 09:00 02/07/20 08:12 Multivit, Therapeutic 1 Tab PO 1 tab DAILY MARTÍN Administration Ondansetron HCl 4 mg 02/01/20 00:12 02/01/20 00:37 Ondansetron Pf 4 Mg/2 Ml Vial IVP 4 mg Q6H PRN Administration Nausea/Vomiting Pantoprazole Sodium 40 mg 02/01/20 09:00 02/07/20 19:51 Pantoprazole 40 Mg Tab PO 40 mg BID MARTÍN Administration Polyethylene Glycol 17 gm 02/02/20 09:00 02/07/20 08:12 Polyethylene Glycol 3350 17 Gm Packet PO 17 gm DAILY MARTÍN Administration Ropinirole HCl 1 mg 02/01/20 21:00 02/07/20 19:51 Ropinirole Hcl 1 Mg Tab PO 1 mg QPM MARTÍN Administration Sodium Chloride 10 ml 02/02/20 09:00 02/07/20 19:50 Flush - Normal Saline 10 Ml Syringe IVF 10 ml Q12HR MARTÍN Administration Tramadol HCl 50 mg 02/05/20 10:36 02/07/20 19:50 Tramadol Hcl 50 Mg Tab PO 50 mg Q4H PRN Administration Moderate Pain (4-6) Trazodone HCl 150 mg 02/01/20 21:00 02/07/20 19:51 Trazodone Hcl 150 Mg Tab PO 150 mg HS MARTÍN Administration Zinc Sulfate 220 mg 02/02/20 21:00 02/07/20 19:50 Zinc Sulfate 220 Mg Cap PO 220 mg HS MARTÍN Administration - Exam General Appearance: ill appearing Neck: supple, no JVD Heart: RRR, no gallops Respiratory: rales, rhonchi Gastrointestinal: soft, no guarding, no rigidity Musculoskeletal: generalized weakness Psychiatric: A&O x 3 Hosp A/P - Plan DVT proph w/lovenox, DVT proph w/SCDs Acute hypoxic respiratory failure due to COVID-19 pneumoniasymptom onset January 22 UTIcompleted antibiotic Right shoulder pain? Rotator cuff injuryonset 02/04improving Hypertension CKD stage II Hyperlipidemia Chronic low back pain Restless leg syndrome Anxiety Obesity with a BMI 33.3 Plan: Continue dexamethasone with COVID 19 precautions. Continue O2 supplementation. Continue Lovenox once a day due to intermittent hemoptysis. Continue current antihypertensives. Await placement.
[2020-02-08] MEDS: PROVENTIL INHALER 6.7 G (200 INHALATIONS) INH SCH ×6 (01:32→23:05)
[2020-02-08] MEDS: diphenhydrAMINE 25 MG CAP PO PRN (01:32)
[2020-02-08] MEDS: traMADol HCl 50 MG TAB PO PRN ×3 (04:53→20:15)
[2020-02-08] MEDS: Baclofen 10 MG TAB PO SCH ×4 (05:00→23:06)
[2020-02-08 06:15] LABS: #Eosinphils 0.1 thou/uL (0.0-0.7); #Lymphocytes 2.2 thou/uL (1.20-3.40); #Monocytes 0.7 thou/uL (0.11-0.59); #Neutrophils 6.6 thou/uL (1.40-6.50); %Basophils 0.2 % (0.0-1.0); %Eosinophils 1.1 % (0.0-10.0); %Monocytes 7.5 % (0.0-10.0); %Neutrophils 68.2 % (42.0-75.0); Hemoglobin 12.5 g/dL (12.0-16.0); Mean Corpuscular HGB CONC 34.4 g/dL (32.0-36.0); Mean Corpuscular Hemoglobin 30.5 pg (27.0-31.0); Mean Corpuscular Volume 88.5 fL (78.0-98.0); Mean Platelet Volume 7.3 fL (7.4-10.4); Platelet Count 323 thou/uL (130-400); White Blood Cell (WBC) Count 9.7 thou/uL (4.8-10.8)
[2020-02-08 06:36] LABS: ALT (SGPT) 87 U/L (8-55); AST (SGOT) 32 U/L (5-34); Albumin 3.2 g/dL (3.4-4.8); Alkaline Phosphatase 71 U/L (40-110); Anion Gap 12 mmol/L (10-20); BUN (Urea Nitrogen) 20 mg/dL (9.8-20.1); Bilirubin, Total 0.4 mg/dL (0.2-1.2); Calc. Creatinine Clearance 112 mL/min (70-130); Calcium 8.8 mg/dL (7.8-10.44); Carbon Dioxide 29 mmol/L (23-31); Chloride 99 mmol/L (98-107); Estimated GFR-MDRD 80; Globulin 3.1 g/dL (2.4-3.5); Glucose 112 mg/dL (83-110); Potassium 4.1 mmol/L (3.5-5.1); Protein, Total 6.3 g/dL (6.0-8.3); Sodium 136 mmol/L (136-145)
[2020-02-08] MEDS: Hydrochlorothiazide 25 MG TAB PO SCH (08:15)
[2020-02-08] MEDS: Carvedilol 6.25 MG TAB PO SCH ×2 (08:15→17:19)
[2020-02-08] MEDS: Calcium Carbonate 600 MG + Vit D TAB PO SCH (08:15)
[2020-02-08] MEDS: Aspirin 81 mg Enteric Coated Tablet PO SCH (08:15)
[2020-02-08] MEDS: Amlodipine 5 MG TAB PO SCH (08:15)
[2020-02-08] MEDS: Cholecalciferol (Vitamin D3) 400 UNITS TAB PO SCH (08:15)
[2020-02-08] MEDS: Enoxaparin Sodium 40 MG/0.4 ML SYRINGE SC SCH (08:16)
[2020-02-08] MEDS: Multivit, Therapeutic 1 TAB PO SCH (08:16)
[2020-02-08] MEDS: Dexamethasone 4 mg/ml Vial SLOW IVP SCH (08:21)
[2020-02-08] MEDS: Polyethylene Glycol 3350 17 GM Packet PO SCH ×2 (08:21→20:15)
[2020-02-08] MEDS: Ascorbic Acid 500 mg Chewable Tablet PO SCH (08:23)
[2020-02-08] MEDS ORDERED: Senokot S 8.6-50 MG TAB PO SCH (11:15)
--- NOTE | 2020-02-08 14:09 | PRG ---
DATE OF SERVICE: 02/08/2020 SUBJECTIVE: Feeling better. She is on room air, saturating at 93% to 94%. Feels comfortable, speaking full sentences. No nausea or vomiting. No dyspnea. No abdominal pain or diarrhea. She states that she has to think to swallow anything. It is not clear to me what that means exactly if she has some sort of dyspraxia. OBJECTIVE: VITAL SIGNS: Showed normal temperature; O2 saturation 93% on room air; BP, pulse, and respiratory rate normal. LUNGS: Clear. HEART: S1, S2. Regular rate. ABDOMEN: Soft, not distended or tender. EXTREMITIES: Moves all extremities equally. EXTREMITIES: Moves extremities equally. NEUROLOGIC: Cognitive function appears to be intact. LABORATORY DATA: White cell count 9.7, hemoglobin 12.5, platelets 323. Creatinine 0.72. Ferritin is 513. CRP down to 0.94. She is on Decadron. ASSESSMENT AND DISCUSSION: Obesity, hypertension, moderate COVID infection, this is the 17th day of illness. She is doing quite well now. Should continue to do well, she is eligible for discharge planning at this point in time. She probably does not need any more Decadron upon discharge. Job ID: [id number]
--- NOTE | 2020-02-08 16:36 | PDOC.HOSPP ---
- Subjective Encounter Date: 02/08/20 Encounter Time: 10:30 Subjective: Patient seen and examined for respiratory failure/COVID-19 pneumonia. Shortness of breath improving. Mild cough essentially dry. Denies any fever or chills. No chest pain or shortness of breath. - Objective Vital Signs & Weight: Vital Signs (12 hours) Temp Pulse Resp BP BP Pulse Ox 02/08/20 09:36 98.2 F 67 18 134/72 93 L 02/08/20 08:15 63 184/92 H 02/08/20 08:00 93 L Weight Weight 218 lb 14.704 oz I&O: 02/07/20 02/08/20 02/09/20 06:59 06:59 06:59 Intake Total 800 750 Balance 800 750 Result Diagrams: 02/08/20 05:41 02/08/20 05:41 Additional Labs: Abnormal Lab Results - Last 48 hrs 02/07/20 05:51: Anion Gap 9 L, BUN 23 H, AST 44 H, ALT 97 H, Albumin 3.3 L, Albumin/Globulin Ratio 1.0 L 02/07/20 05:51: Band Neuts % (Manual) 2 L, Metamyelocytes % (Man) 1 H, Myelocytes % 1 H 02/07/20 05:51: C-Reactive Protein 2.14 H 02/07/20 05:51: Ferritin 519.76 H 02/07/20 05:52: D-Dimer 0.83 H 02/08/20 05:41: ALT 87 H, Albumin 3.2 L, Albumin/Globulin Ratio 1.0 L 02/08/20 05:41: RBC 4.10 L, MPV 7.3 L, Neutrophils # 6.6 H, Monocytes # 0.7 H 02/08/20 05:41: C-Reactive Protein 0.94 H 02/08/20 05:41: Ferritin 513.77 H 02/08/20 05:41: D-Dimer 0.92 H Microbiology - Entire Visit 02/02/20 00:30 Urine clean catch Urine Culture - Final Presumptive Pseudomonas Hospitalist ROS - Review of Systems Cardiovascular: denies: chest pain, palpitations, orthopnea, paroxysmal noc. dyspnea, edema, light headedness, other Gastrointestinal: denies: nausea, vomiting, abdominal pain, diarrhea, const ipation, melena, hematochezia, other - Medication Medications: Active Medications Generic Name Dose Route Start Last Admin Trade Name Freq PRN Reason Stop Dose Admin Acetaminophen 650 mg 02/05/20 01:33 02/05/20 20:10 Acetaminophen 325 Mg Tab PO 650 mg Q6H PRN Administration Fever/Mild Pain Albuterol Sulfate 2 puff 02/02/20 14:30 02/08/20 14:31 Proventil Inhaler 6.7 G (200 Inhalations) INH 2 puff [id number] MARTÍN Administration Alprazolam 0.25 mg 02/02/20 12:37 02/07/20 01:16 Alprazolam 0.25 Mg Tab PO 0.25 mg BIDPRN PRN Administration Anxiety Amlodipine Besylate 5 mg 02/05/20 09:00 02/08/20 08:15 Amlodipine 5 Mg Tab PO 5 mg DAILY MARTÍN Administration Artificial Tears 2 drop 02/03/20 16:41 02/03/20 20:56 Artificial Tear Leslie 15 Ml Bot EA EYE 2 drop QIDPRN PRN Administration Dry Eyes Ascorbic Acid 1,000 mg 02/02/20 09:00 02/08/20 08:23 Ascorbic Acid 500 Mg Chewable Tablet PO 1,000 mg DAILY MARTÍN Administration Aspirin 81 mg 02/01/20 09:00 02/08/20 08:15 Aspirin 81 Mg Enteric Coated Tablet PO 81 mg DAILY MARTÍN Administration Atorvastatin Calcium 20 mg 02/01/20 21:00 02/07/20 19:51 Atorvastatin Calcium 20 Mg Tab PO 20 mg HS MARTÍN Administration Baclofen 5 mg 01/31/20 23:59 02/08/20 11:18 Baclofen 10 Mg Tab PO 5 mg Q6HR MARTÍN Administration Calcium/Vitamin D 1 tab 02/03/20 08:00 02/08/20 08:15 Calcium Carbonate 600 Mg + Vit D Tab PO 1 tab QAM-WM MARTÍN Administration Carvedilol 12.5 mg 02/07/20 17:00 02/08/20 08:15 Carvedilol 6.25 Mg Tab PO 12.5 mg BID-WM MARTÍN Administration Chlorphenir/Hydrocodone Polistirex 5 ml 01/31/20 23:56 02/03/20 20:56 Hydrocodone/Chlorphen Polis 5 Ml Udcup PO 5 ml HSPRN PRN Administration Cough Cholecalciferol 400 units 02/03/20 09:00 02/08/20 08:15 Cholecalciferol (Vitamin D3) 400 Units Tab PO 400 units DAILY MARTÍN Administration Dexamethasone 6 mg 02/01/20 09:00 02/08/20 08:21 Dexamethasone 4 Mg/Ml Vial SLOW IVP 6 mg DAILY MARTÍN Administration Diphenhydramine HCl 25 mg 02/02/20 12:37 02/08/20 01:32 Diphenhydramine 25 Mg Cap PO 25 mg Q6H PRN Administration Itching & Insomnia Enoxaparin Sodium 40 mg 02/07/20 09:00 02/08/20 08:16 Enoxaparin Sodium 40 Mg/0.4 Ml Syringe SC 40 mg 0900 MARTÍN Administration Hydrochlorothiazide 12.5 mg 02/01/20 09:00 02/08/20 08:15 Hydrochlorothiazide 25 Mg Tab PO 12.5 mg DAILY MARTÍN Administration Montelukast Sodium 10 mg 02/01/20 21:00 02/07/20 19:51 Montelukast Sodium 10 Mg Tablet PO 10 mg HS MARTÍN Administration Multivitamins 1 tab 02/02/20 09:00 02/08/20 08:16 Multivit, Therapeutic 1 Tab PO 1 tab DAILY MARTÍN Administration Ondansetron HCl 4 mg 02/01/20 00:12 02/01/20 00:37 Ondansetron Pf 4 Mg/2 Ml Vial IVP 4 mg Q6H PRN Administration Nausea/Vomiting Pantoprazole Sodium 40 mg 02/01/20 09:00 02/08/20 08:15 Pantoprazole 40 Mg Tab PO 40 mg BID MARTÍN Administration Ropinirole HCl 1 mg 02/01/20 21:00 02/07/20 19:51 Ropinirole Hcl 1 Mg Tab PO 1 mg QPM MARTÍN Administration Sodium Chloride 10 ml 02/02/20 09:00 02/08/20 08:21 Flush - Normal Saline 10 Ml Syringe IVF 10 ml Q12HR MARTÍN Administration Tramadol HCl 50 mg 02/05/20 10:36 02/08/20 12:40 Tramadol Hcl 50 Mg Tab PO 50 mg Q4H PRN Administration Moderate Pain (4-6) Trazodone HCl 150 mg 02/01/20 21:00 02/07/20 19:51 Trazodone Hcl 150 Mg Tab PO 150 mg HS MARTÍN Administration Zinc Sulfate 220 mg 02/02/20 21:00 11/12/20 19:50 Zinc Sulfate 220 Mg Cap PO 220 mg HS MARTÍN Administration - Exam General Appearance: NAD Heart: RRR, no gallops Respiratory: no wheezes, rhonchi Gastrointestinal: soft, no guarding, no rigidity Extremities: no cyanosis Neurological: no new deficit Hosp A/P - Plan DVT proph w/lovenox, DVT proph w/SCDs Acute hypoxic respiratory failure due to COVID-19 pneumoniasymptom onset January 22 UTIcompleted antibiotic Right shoulder painonset 02/04resolved Hypertension CKD stage II Hyperlipidemia Chronic low back pain Restless leg syndrome Anxiety Obesity with a BMI 33.3 Plan: Await placement. Continue dexamethasone. Continue bronchodilators. Continue Lovenox once daily due to intermittent hemoptysis. Inflammatory markers slowly improving. Continue other medications as above. Infectious disease following. Continue amlodipine, hydrochlorothiazide, Lipitor and other medications as above. Discontinue dexamethasone at discharge per infectious disease
[2020-02-08] MEDS: Zinc Sulfate 220 MG CAP PO SCH (20:15)
[2020-02-08] MEDS: Loratadine 10 MG TAB PO SCH (20:15)
[2020-02-08] MEDS: Atorvastatin Calcium 20 MG TAB PO SCH (20:16)
[2020-02-08] MEDS: Senokot S 8.6-50 MG TAB PO SCH (20:16)
[2020-02-08] MEDS: rOPINIRole HCl 1 MG TAB PO SCH (20:16)
[2020-02-08] MEDS: traZODone HCl 150 MG TAB PO SCH (20:16)
[2020-02-08] MEDS: Montelukast Sodium 10 mg Tablet PO SCH (20:17)
[2020-02-09] MEDS: PROVENTIL INHALER 6.7 G (200 INHALATIONS) INH SCH ×6 (02:04→21:17)
[2020-02-09] MEDS: Baclofen 10 MG TAB PO SCH ×3 (05:45→17:26)
[2020-02-09] MEDS: traMADol HCl 50 MG TAB PO PRN ×3 (05:45→20:33)
[2020-02-09] MEDS: Hydrochlorothiazide 25 MG TAB PO SCH (08:05)
[2020-02-09] MEDS: Carvedilol 6.25 MG TAB PO SCH ×2 (08:06→17:27)
[2020-02-09] MEDS: Aspirin 81 mg Enteric Coated Tablet PO SCH (08:07)
[2020-02-09] MEDS: Amlodipine 5 MG TAB PO SCH (08:07)
[2020-02-09] MEDS: Senokot S 8.6-50 MG TAB PO SCH ×2 (08:08→20:34)
[2020-02-09] MEDS: Enoxaparin Sodium 40 MG/0.4 ML SYRINGE SC SCH (08:08)
[2020-02-09] MEDS: Cholecalciferol (Vitamin D3) 400 UNITS TAB PO SCH (08:08)
[2020-02-09] MEDS: Polyethylene Glycol 3350 17 GM Packet PO SCH ×2 (08:08→20:32)
[2020-02-09] MEDS: Multivit, Therapeutic 1 TAB PO SCH (08:08)
[2020-02-09] MEDS: Calcium Carbonate 600 MG + Vit D TAB PO SCH (08:08)
[2020-02-09] MEDS: Ascorbic Acid 500 mg Chewable Tablet PO SCH (08:09)
[2020-02-09] MEDS: Dexamethasone 4 mg/ml Vial SLOW IVP SCH (08:09)
--- NOTE | 2020-02-09 13:17 | PDOC.HOSPP ---
- Subjective Encounter Date: 02/09/20 Encounter Time: 10:00 Subjective: no sob or palp feels better is beginning to mobilize more per patient is eating well - Objective Vital Signs & Weight: Vital Signs (12 hours) Pulse Ox 02/09/20 08:20 95 Weight Weight 218 lb 14.704 oz I&O: 02/08/20 02/09/20 02/10/20 06:59 06:59 06:59 Intake Total 750 600 Balance 750 600 Result Diagrams: 02/08/20 05:41 02/08/20 05:41 Hospitalist ROS - Medication Medications: Active Medications Generic Name Dose Route Start Last Admin Trade Name Freq PRN Reason Stop Dose Admin Acetaminophen 650 mg 02/05/20 01:33 02/05/20 20:10 Acetaminophen 325 Mg Tab PO 650 mg Q6H PRN Administration Fever/Mild Pain Albuterol Sulfate 2 puff 02/02/20 14:30 02/09/20 11:18 Proventil Inhaler 6.7 G (200 Inhalations) INH 2 puff [id number] MARTÍN Administration Alprazolam 0.25 mg 02/02/20 12:37 02/07/20 01:16 Alprazolam 0.25 Mg Tab PO 0.25 mg BIDPRN PRN Administration Anxiety Amlodipine Besylate 5 mg 02/05/20 09:00 02/09/20 08:07 Amlodipine 5 Mg Tab PO 5 mg DAILY MARTÍN Administration Artificial Tears 2 drop 02/03/20 16:41 02/03/20 20:56 Artificial Tear Leslie 15 Ml Bot EA EYE 2 drop QIDPRN PRN Administration Dry Eyes Ascorbic Acid 1,000 mg 02/02/20 09:00 02/09/20 08:09 Ascorbic Acid 500 Mg Chewable Tablet PO 1,000 mg DAILY MARTÍN Administration Aspirin 81 mg 02/01/20 09:00 02/09/20 08:07 Aspirin 81 Mg Enteric Coated Tablet PO 81 mg DAILY MARTÍN Administration Atorvastatin Calcium 20 mg 02/01/20 21:00 02/08/20 20:16 Atorvastatin Calcium 20 Mg Tab PO 20 mg HS MARTÍN Administration Baclofen 5 mg 01/31/20 23:59 02/09/20 12:06 Baclofen 10 Mg Tab PO 5 mg Q6HR MARTÍN Administration Calcium/Vitamin D 1 tab 02/03/20 08:00 02/09/20 08:08 Calcium Carbonate 600 Mg + Vit D Tab PO 1 tab QAM-WM MARTÍN Administration Carvedilol 12.5 mg 02/07/20 17:00 02/09/20 08:06 Carvedilol 6.25 Mg Tab PO 12.5 mg BID-WM MARTÍN Administration Chlorphenir/Hydrocodone Polistirex 5 ml 01/31/20 23:56 02/03/20 20:56 Hydrocodone/Chlorphen Polis 5 Ml Udcup PO 5 ml HSPRN PRN Administration Cough Cholecalciferol 400 units 02/03/20 09:00 02/09/20 08:08 Cholecalciferol (Vitamin D3) 400 Units Tab PO 400 units DAILY MARTÍN Administration Dexamethasone 6 mg 02/01/20 09:00 02/09/20 08:09 Dexamethasone 4 Mg/Ml Vial SLOW IVP 6 mg DAILY MARTÍN Administration Diphenhydramine HCl 25 mg 02/02/20 12:37 02/08/20 01:32 Diphenhydramine 25 Mg Cap PO 25 mg Q6H PRN Administration Itching & Insomnia Enoxaparin Sodium 40 mg 02/07/20 09:00 02/09/20 08:08 Enoxaparin Sodium 40 Mg/0.4 Ml Syringe SC 40 mg 0900 MARTÍN Administration Hydrochlorothiazide 12.5 mg 02/01/20 09:00 02/09/20 08:05 Hydrochlorothiazide 25 Mg Tab PO 12.5 mg DAILY MARTÍN Administration Loratadine 10 mg 02/08/20 21:00 02/08/20 20:15 Loratadine 10 Mg Tab PO 10 mg HS MARTÍN Administration Montelukast Sodium 10 mg 02/01/20 21:00 02/08/20 20:17 Montelukast Sodium 10 Mg Tablet PO 10 mg HS MARTÍN Administration Multivitamins 1 tab 02/02/20 09:00 02/09/20 08:08 Multivit, Therapeutic 1 Tab PO 1 tab DAILY MARTÍN Administration Ondansetron HCl 4 mg 02/01/20 00:12 02/01/20 00:37 Ondansetron Pf 4 Mg/2 Ml Vial IVP 4 mg Q6H PRN Administration Nausea/Vomiting Pantoprazole Sodium 40 mg 02/01/20 09:00 02/09/20 08:07 Pantoprazole 40 Mg Tab PO 40 mg BID MARTÍN Administration Polyethylene Glycol 17 gm 02/08/20 21:00 02/09/20 08:08 Polyethylene Glycol 3350 17 Gm Packet PO 17 gm BID MARTÍN Administration Ropinirole HCl 1 mg 02/01/20 21:00 02/08/20 20:16 Ropinirole Hcl 1 Mg Tab PO 1 mg QPM MARTÍN Administration Senna/Docusate Sodium 2 tab 02/08/20 21:00 02/09/20 08:08 Senokot S 8.6-50 Mg Tab PO 2 tab BID MARTÍN Administration Sodium Chloride 10 ml 02/02/20 09:00 02/09/20 08:11 Flush - Normal Saline 10 Ml Syringe IVF 10 ml Q12HR MARTÍN Administration Tramadol HCl 50 mg 02/05/20 10:36 02/09/20 12:07 Tramadol Hcl 50 Mg Tab PO 50 mg Q4H PRN Administration Moderate Pain (4-6) Trazodone HCl 150 mg 02/01/20 21:00 02/08/20 20:16 Trazodone Hcl 150 Mg Tab PO 150 mg HS MARTÍN Administration Zinc Sulfate 220 mg 02/02/20 21:00 02/08/20 20:15 Zinc Sulfate 220 Mg Cap PO 220 mg HS MARTÍN Administration - Exam General Appearance: awake alert Eye: PERRL, anicteric sclera ENT: no oropharyngeal lesions, moist mucosa Neck: supple, no JVD Heart: RRR, no murmur Respiratory: no wheezes, no rales Gastrointestinal: soft, non-tender, non-distended, normal bowel sounds Extremities: no cyanosis, no edema Neurological: cranial nerve grossly intact, no focal deficits Psychiatric: A&O x 3 Hosp A/P (1) Pneumonia due to COVID-19 virus Code(s): U07.1 - COVID-19; J12.89 - OTHER VIRAL PNEUMONIA Status: Acute (2) Acute respiratory failure with hypoxia Code(s): J96.01 - ACUTE RESPIRATORY FAILURE WITH HYPOXIA Status: Acute (3) HTN (hypertension) Code(s): I10 - ESSENTIAL (PRIMARY) HYPERTENSION Status: Chronic Qualifiers: Hypertension type: essential hypertension Qualified Code(s): I10 - Essential (primary) hypertension (4) Dyslipidemia Code(s): E78.5 - HYPERLIPIDEMIA, UNSPECIFIED Status: Chronic (5) Obesity (BMI 30.0-34.9) Code(s): E66.9 - OBESITY, UNSPECIFIED Status: Chronic (6) Chronic pain Code(s): G89.29 - OTHER CHRONIC PAIN Status: Chronic Qualifiers: Chronic pain type: other chronic pain Qualified Code(s): G89.29 - Other chronic pain - Plan is on dexamethasone, off and on nasal canula, was not a candidate for remdesivir due to duration of illness prior to arrival hemostable, awaiting placement continue asp, lipitor, norvasc, coreg, hctz, protonix, singulair, alb inh, requ ip, baclofen q6h, trazadone HS may dc if placement is ready to amb as tolerated
[2020-02-09] MEDS: Montelukast Sodium 10 mg Tablet PO SCH (20:33)
[2020-02-09] MEDS: traZODone HCl 150 MG TAB PO SCH (20:33)
[2020-02-09] MEDS: Atorvastatin Calcium 20 MG TAB PO SCH (20:33)
[2020-02-09] MEDS: Loratadine 10 MG TAB PO SCH (20:33)
[2020-02-09] MEDS: Zinc Sulfate 220 MG CAP PO SCH (20:34)
[2020-02-09] MEDS: rOPINIRole HCl 1 MG TAB PO SCH (20:34)
[2020-02-09] MEDS: HYDROcodone/Chlorphen Polis 5 ML UDCUP PO PRN (21:14)
[2020-02-10] MEDS: traMADol HCl 50 MG TAB PO PRN ×4 (00:54→20:46)
[2020-02-10] MEDS: Baclofen 10 MG TAB PO SCH ×4 (00:55→17:27)
[2020-02-10] MEDS: PROVENTIL INHALER 6.7 G (200 INHALATIONS) INH SCH ×6 (02:13→22:40)
[2020-02-10] MEDS: Polyethylene Glycol 3350 17 GM Packet PO SCH ×2 (08:05→20:29)
[2020-02-10] MEDS: Hydrochlorothiazide 25 MG TAB PO SCH (08:05)
[2020-02-10] MEDS: Enoxaparin Sodium 40 MG/0.4 ML SYRINGE SC SCH (08:05)
[2020-02-10] MEDS: Cholecalciferol (Vitamin D3) 400 UNITS TAB PO SCH (08:05)
[2020-02-10] MEDS: Senokot S 8.6-50 MG TAB PO SCH ×2 (08:06→20:28)
[2020-02-10] MEDS: Calcium Carbonate 600 MG + Vit D TAB PO SCH (08:06)
[2020-02-10] MEDS: Amlodipine 5 MG TAB PO SCH (08:06)
[2020-02-10] MEDS: Aspirin 81 mg Enteric Coated Tablet PO SCH (08:06)
[2020-02-10] MEDS: Carvedilol 6.25 MG TAB PO SCH ×2 (08:06→17:27)
[2020-02-10] MEDS: Dexamethasone 4 mg/ml Vial SLOW IVP SCH (08:07)
[2020-02-10] MEDS: Ascorbic Acid 500 mg Chewable Tablet PO SCH (08:07)
[2020-02-10] MEDS: Multivit, Therapeutic 1 TAB PO SCH (08:07)
--- NOTE | 2020-02-10 13:53 | PDOC.HOSPP ---
- Subjective Encounter Date: 02/10/20 Encounter Time: 10:00 Subjective: no new complaints, feels better wears O2 off and on is eating and sleeping better is amb with rw in room per patient - Objective Vital Signs & Weight: Vital Signs (12 hours) Temp Pulse Resp BP Pulse Ox 02/10/20 08:15 97.8 F 59 L 17 148/74 H 95 Weight Weight 218 lb 14.704 oz I&O: 02/09/20 02/10/20 02/11/20 06:59 06:59 06:59 Intake Total 600 2340 Balance 600 2340 Result Diagrams: 02/08/20 05:41 02/08/20 05:41 Hospitalist ROS - Medication Medications: Active Medications Generic Name Dose Route Start Last Admin Trade Name Freq PRN Reason Stop Dose Admin Acetaminophen 650 mg 02/05/20 01:33 02/05/20 20:10 Acetaminophen 325 Mg Tab PO 650 mg Q6H PRN Administration Fever/Mild Pain Albuterol Sulfate 2 puff 02/02/20 14:30 02/10/20 11:22 Proventil Inhaler 6.7 G (200 Inhalations) INH 2 puff [id number] MARTÍN Administration Alprazolam 0.25 mg 02/02/20 12:37 02/07/20 01:16 Alprazolam 0.25 Mg Tab PO 0.25 mg BIDPRN PRN Administration Anxiety Amlodipine Besylate 5 mg 02/05/20 09:00 02/10/20 08:06 Amlodipine 5 Mg Tab PO 5 mg DAILY MARTÍN Administration Artificial Tears 2 drop 02/03/20 16:41 02/03/20 20:56 Artificial Tear Leslie 15 Ml Bot EA EYE 2 drop QIDPRN PRN Administration Dry Eyes Ascorbic Acid 1,000 mg 02/02/20 09:00 02/10/20 08:07 Ascorbic Acid 500 Mg Chewable Tablet PO 1,000 mg DAILY MARTÍN Administration Aspirin 81 mg 02/01/20 09:00 02/10/20 08:06 Aspirin 81 Mg Enteric Coated Tablet PO 81 mg DAILY MARTÍN Administration Atorvastatin Calcium 20 mg 02/01/20 21:00 02/09/20 20:33 Atorvastatin Calcium 20 Mg Tab PO 20 mg HS MARTÍN Administration Baclofen 5 mg 01/31/20 23:59 02/10/20 11:20 Baclofen 10 Mg Tab PO 5 mg Q6HR MARTÍN Administration Calcium/Vitamin D 1 tab 02/03/20 08:00 02/10/20 08:06 Calcium Carbonate 600 Mg + Vit D Tab PO 1 tab QAM-WM MARTÍN Administration Carvedilol 12.5 mg 02/07/20 17:00 02/10/20 08:06 Carvedilol 6.25 Mg Tab PO 12.5 mg BID-WM MARTÍN Administration Chlorphenir/Hydrocodone Polistirex 5 ml 01/31/20 23:56 02/09/20 21:14 Hydrocodone/Chlorphen Polis 5 Ml Udcup PO 5 ml HSPRN PRN Administration Cough Cholecalciferol 400 units 02/03/20 09:00 02/10/20 08:05 Cholecalciferol (Vitamin D3) 400 Units Tab PO 400 units DAILY MARTÍN Administration Diphenhydramine HCl 25 mg 02/02/20 12:37 02/08/20 01:32 Diphenhydramine 25 Mg Cap PO 25 mg Q6H PRN Administration Itching & Insomnia Enoxaparin Sodium 40 mg 02/07/20 09:00 02/10/20 08:05 Enoxaparin Sodium 40 Mg/0.4 Ml Syringe SC 40 mg 0900 MARTÍN Administration Hydrochlorothiazide 12.5 mg 02/01/20 09:00 02/10/20 08:05 Hydrochlorothiazide 25 Mg Tab PO 12.5 mg DAILY MARTÍN Administration Loratadine 10 mg 02/08/20 21:00 02/09/20 20:33 Loratadine 10 Mg Tab PO 10 mg HS MARTÍN Administration Montelukast Sodium 10 mg 02/01/20 21:00 02/09/20 20:33 Montelukast Sodium 10 Mg Tablet PO 10 mg HS MARTÍN Administration Multivitamins 1 tab 02/02/20 09:00 02/10/20 08:07 Multivit, Therapeutic 1 Tab PO 1 tab DAILY MARTÍN Administration Ondansetron HCl 4 mg 02/01/20 00:12 02/01/20 00:37 Ondansetron Pf 4 Mg/2 Ml Vial IVP 4 mg Q6H PRN Administration Nausea/Vomiting Pantoprazole Sodium 40 mg 02/01/20 09:00 02/10/20 08:07 Pantoprazole 40 Mg Tab PO 40 mg BID MARTÍN Administration Polyethylene Glycol 17 gm 02/08/20 21:00 02/10/20 08:05 Polyethylene Glycol 3350 17 Gm Packet PO 17 gm BID MARTÍN Administration Ropinirole HCl 1 mg 02/01/20 21:00 02/09/20 20:34 Ropinirole Hcl 1 Mg Tab PO 1 mg QPM MARTÍN Administration Senna/Docusate Sodium 2 tab 02/08/20 21:00 02/10/20 08:06 Senokot S 8.6-50 Mg Tab PO 2 tab BID MARTÍN Administration Sodium Chloride 10 ml 02/02/20 09:00 02/10/20 08:08 Flush - Normal Saline 10 Ml Syringe IVF 10 ml Q12HR MARTÍN Administration Tramadol HCl 50 mg 02/05/20 10:36 02/10/20 06:08 Tramadol Hcl 50 Mg Tab PO 50 mg Q4H PRN Administration Moderate Pain (4-6) Trazodone HCl 150 mg 02/01/20 21:00 02/09/20 20:33 Trazodone Hcl 150 Mg Tab PO 150 mg HS MARTÍN Administration Zinc Sulfate 220 mg 02/02/20 21:00 02/09/20 20:34 Zinc Sulfate 220 Mg Cap PO 220 mg HS MARTÍN Administration - Exam General Appearance: awake alert Eye: PERRL, anicteric sclera ENT: no oropharyngeal lesions, moist mucosa Neck: supple, no JVD Heart: RRR, no murmur Respiratory: no wheezes, no rales Gastrointestinal: soft, non-tender, non-distended, normal bowel sounds Extremities: no cyanosis, no edema Neurological: cranial nerve grossly intact, no focal deficits Psychiatric: normal affect, A&O x 3 Hosp A/P (1) Pneumonia due to COVID-19 virus Code(s): U07.1 - COVID-19; J12.89 - OTHER VIRAL PNEUMONIA Status: Acute (2) Acute respiratory failure with hypoxia Code(s): J96.01 - ACUTE RESPIRATORY FAILURE WITH HYPOXIA Status: Acute (3) HTN (hypertension) Code(s): I10 - ESSENTIAL (PRIMARY) HYPERTENSION Status: Chronic Qualifiers: Hypertension type: essential hypertension Qualified Code(s): I10 - Essential (primary) hypertension (4) Dyslipidemia Code(s): E78.5 - HYPERLIPIDEMIA, UNSPECIFIED Status: Chronic (5) Obesity (BMI 30.0-34.9) Code(s): E66.9 - OBESITY, UNSPECIFIED Status: Chronic (6) Chronic pain Code(s): G89.29 - OTHER CHRONIC PAIN Status: Chronic Qualifiers: Chronic pain type: other chronic pain Qualified Code(s): G89.29 - Other chronic pain - Plan is on dexamethasone, off and on nasal canula, was not a candidate for remdesivir due to duration of illness prior to arrival hemostable, awaiting placement continue asp, lipitor, norvasc, coreg, hctz, protonix, singulair, alb inh, requip, baclofen q6h, trazadone HS may dc if placement is ready to amb as tolerated with rw.
[2020-02-10] MEDS: rOPINIRole HCl 1 MG TAB PO SCH (20:28)
[2020-02-10] MEDS: traZODone HCl 150 MG TAB PO SCH (20:28)
[2020-02-10] MEDS: Zinc Sulfate 220 MG CAP PO SCH (20:29)
[2020-02-10] MEDS: Atorvastatin Calcium 20 MG TAB PO SCH (20:29)
[2020-02-10] MEDS: Loratadine 10 MG TAB PO SCH (20:29)
[2020-02-10] MEDS: Montelukast Sodium 10 mg Tablet PO SCH (20:29)
[2020-02-11] MEDS: Baclofen 10 MG TAB PO SCH ×2 (00:18→05:41)
[2020-02-11] MEDS: PROVENTIL INHALER 6.7 G (200 INHALATIONS) INH SCH ×2 (02:40→05:42)
[2020-02-11] MEDS: traMADol HCl 50 MG TAB PO PRN ×2 (03:30→08:15)
[2020-02-11] MEDS ORDERED: Dexamethasone 4 MG TAB PO SCH (08:00)
[2020-02-11] MEDS: Aspirin 81 mg Enteric Coated Tablet PO SCH (08:13)
[2020-02-11] MEDS: Cholecalciferol (Vitamin D3) 400 UNITS TAB PO SCH (08:13)
[2020-02-11] MEDS: Polyethylene Glycol 3350 17 GM Packet PO SCH (08:13)
[2020-02-11] MEDS: Hydrochlorothiazide 25 MG TAB PO SCH (08:14)
[2020-02-11] MEDS: Multivit, Therapeutic 1 TAB PO SCH (08:16)
[2020-02-11] MEDS: Amlodipine 5 MG TAB PO SCH (08:16)
[2020-02-11] MEDS: Senokot S 8.6-50 MG TAB PO SCH (08:16)
[2020-02-11] MEDS: Carvedilol 6.25 MG TAB PO SCH (08:17)
[2020-02-11] MEDS: Calcium Carbonate 600 MG + Vit D TAB PO SCH (08:18)
[2020-02-11] MEDS: Ascorbic Acid 500 mg Chewable Tablet PO SCH (08:18)
[2020-02-11] MEDS: Enoxaparin Sodium 40 MG/0.4 ML SYRINGE SC SCH (08:18)
[2020-02-11 08:41] VITALS: BP 134/75; TEMP 97.7
--- NOTE | 2020-02-11 16:58 | DIS ---
DATE OF ADMISSION: 01/31/2020 DATE OF DISCHARGE: 02/11/2020 DISCHARGE DISPOSITION: [facility]. PRIMARY DISCHARGE DIAGNOSES: Pneumonia due to COVID-19 virus, acute respiratory failure with hypoxia. SECONDARY DISCHARGE DIAGNOSES: Hypertension, dyslipidemia, obesity, chronic pain. PROCEDURES DONE DURING HOSPITALIZATION: Ultrasound venous Doppler of right upper extremity done showed no evidence of DVT. CT angio chest showed no evidence of pulmonary embolus. COVID-19 pneumonia with scattered ground-glass densities throughout both lungs. Enlarged thyroid gland with multiple nodules which was seen on prior studies in 2019 and 2018 as well. Right shoulder three-view x-ray done showed no acute osseous abnormality. H and H 12 and 36, platelet count 323, white count of 9 with 68% neutrophils. BUN 20, creatinine 0.7. Ferritin was 695 on the 04 of February, at the time of discharge 513. CRP was 4.0 on the 05 of February, at the time of discharge 0.94. COVID-19 PCR was positive on 01/29/2020. DISCHARGE MEDICATIONS: 1. Aspirin 81 mg p.o. daily. 2. Atorvastatin 20 mg p.o. at bedtime. 3. Baclofen 5 mg p.o. q.6 hourly. 4. Carvedilol 12.5 mg twice daily. 5. Trazodone 150 mg p.o. at bedtime. 6. Hydrochlorothiazide 12.5 mg p.o. daily. 7. MiraLAX 17 g daily. 8. Protonix 40 mg twice daily. 9. Ropinirole 1 mg p.o. q.p.m. 10. Singulair 10 mg p.o. at bedtime. 11. Dexamethasone 6 mg p.o. daily for another 5 days. 12. Norvasc 5 mg daily. 13. Albuterol inhaler q.6 hourly p.r.n. 14. Multivitamin one tablet once daily. ALLERGIES: ALLERGIC TO CODEINE, MEPERIDINE, MORPHINE, AND . DISCHARGE PLAN: The patient to follow up with her primary care physician in 1 week. BRIEF COURSE DURING HOSPITALIZATION: The patient initially came in on the 30 of January with complaints of generalized weakness and decreased oral intake. She was positive for COVID-19 PCR on the 28 of January. The patient was placed on steroids. The patient has had symptoms of generalized weakness for almost a week prior to arrival. In view of this history, the patient was not a candidate for remdesivir due to unknown duration of illness. She was evaluated by Dr. Fisher for Infectious Disease. She was on 2 L nasal cannula off and on. The patient requires oxygen on ambulation. She ambulates with a rolling walker. She has started to eat well. She has had some deconditioning and needs to work with Physical Therapy at the [facility]. She is hemodynamically stable and will be shortly discharged. She needs to follow up with her primary care physician in a week. Please note, I have seen and examined the patient on the day of discharge. A total of 35 minutes was spent on discharge plan. Job ID: [id number]
== END 2020-02-11 11:46 | DRG 177 ==
LOC: ERS 17:16 → T4-A 21:11
PROVIDERS: ADMIT Internal Medicine; ATTEND Internal Medicine
PROC: 8E0ZXY6 Isolation (ICD-10-PCS; principal; 2020-01-31)
DX: U07.1 COVID-19 (principal); J96.01 Acute respiratory failure with hypoxia; J12.89 Other viral pneumonia; N39.0 Urinary tract infection, site not specified; E78.5 Hyperlipidemia, unspecified; E66.9 Obesity, unspecified; G89.29 Other chronic pain; I12.9 Hypertensive chronic kidney disease with stage 1 through stage 4 chronic kidney disease, or unspecified chronic kidney disease; N18.2 Chronic kidney disease, stage 2 (mild); M54.5 Low back pain; G25.81 Restless legs syndrome; F41.9 Anxiety disorder, unspecified; Z68.33 Body mass index [BMI] 33.0-33.9, adult; K21.9 Gastro-esophageal reflux disease without esophagitis; R63.0 Anorexia; M25.511 Pain in right shoulder; E78.00 Pure hypercholesterolemia, unspecified; E11.22 Type 2 diabetes mellitus with diabetic chronic kidney disease
CPT/HCPCS: 36415; 71045; 71275; 80048; 80053; 81003; 81015; 82728; 83615; 83735; 83880; 84100; 84484; 85025; 85379; 86140; 87086; 87635; 93005; 94664; 96365; 96367; 96375; J0456; J0696; J1100; J1650; J2270; J2405; J3475; J3490; J7626; J8540; Q0163; Q9967; U0003

== ENCOUNTER 2020-04-02 10:37 | Outpatient (CLI) | payer MEDICARE ==
--- NOTE | 2020-04-02 11:35 | MMO ---
Bilateral MAMMO Bilat Screen [facility]. CLINICAL HISTORY: Patient is 69 years old and is seen for screening. The patient has no family history of breast cancer. The patient has no personal history of cancer. VIEWS: The views performed were: bilateral craniocaudal with tomosynthesis and bilateral mediolateral oblique with tomosynthesis. FILMS COMPARED: The present examination has been compared to a prior imaging study performed at [facility] on 07/30/2016. This study has been interpreted with the assistance of computer-aided detection. MAMMOGRAM FINDINGS: There are scattered fibroglandular densities. There are stable benign appearing calcifications seen in both breasts. There are no suspicious masses, suspicious calcifications, or new areas of architectural distortion. IMPRESSION: THERE IS NO MAMMOGRAPHIC EVIDENCE OF MALIGNANCY. A ROUTINE FOLLOW-UP MAMMOGRAM IN 1 YEAR IS RECOMMENDED. THE RESULTS OF THIS EXAM WERE SENT TO THE PATIENT. ACR BI-RADS Category 2 - Benign finding MAMMOGRAPHY NOTE: 1. A negative mammogram report should not delay a biopsy if a dominant of clinically suspicious mass is present. 2. Approximately 10% to 15% of breast cancers are not detected by mammography. 3. Adenosis and dense breasts may obscure an underlying neoplasm. Reported by: LUIS CARLOS VELEZ MD Electonically Signed: [id number]
== END 2020-04-02 10:38 | disposition home or self-care (01) ==
LOC: BICMAMMO 10:37
PROVIDERS: ATTEND Family Medicine
DX: Z12.31 Encounter for screening mammogram for malignant neoplasm of breast (principal)
CPT/HCPCS: 77063; 77067

== ENCOUNTER 2020-05-21 15:34 | Outpatient (CLI) | payer MEDICARE | END 2020-05-21 15:35 | disposition home or self-care (01) | LOC: SCSRAD 15:34 | PROVIDERS: ATTEND Family Medicine | DX: Z53.9 Procedure and treatment not carried out, unspecified reason (principal) | CPT/HCPCS: 36415; 71046; 80053; 82306; 84439; 84443; 85025; 87086 ==